=== PATIENT | male | born 1955 | race Caucasian/White ===

== ENCOUNTER 2017-05-20 14:16 | Outpatient (CLI) | payer OTHER ==
--- NOTE | 2017-05-20 17:33 | RAD ---
CHEST PA AND LATERAL TWO VIEWS: 05/20/17 HISTORY: 61-year-old male with history of viral infection and cough for five days with fever. B34.9. Heart size is within normal limits. The lungs are clear. No pneumonia, edema, or pleural effusion. IMPRESSION: No acute intrathoracic disease. POS: [facility]
== END 2017-05-20 14:17 | disposition home or self-care (01) ==
LOC: SCSRAD 14:16
PROVIDERS: ATTEND Family Medicine
DX: B34.9 Viral infection, unspecified (principal)
CPT/HCPCS: 71020

== ENCOUNTER 2017-10-23 12:50 | Inpatient (IN) | payer BC ==
[2017-10-23 14:00] LABS: #Basophils 0.1 thou/uL (0.0-0.2); #Eosinphils 0.1 thou/uL (0.0-0.7); #Lymphocytes 1.9 thou/uL (1.20-3.40); #Monocytes 0.5 thou/uL (0.11-0.59); #Neutrophils 10.8 thou/uL (1.40-6.50); %Basophils 0.7 % (0.0-1.0); %Eosinophils 0.8 % (0.0-10.0); %Lymphocytes 14.4 % (21.0-51.0); %Monocytes 3.7 % (0.0-10.0); %Neutrophils 80.4 % (42.0-75.0); Hemoglobin 13.3 g/dL (14.0-18.0); Mean Corpuscular Hemoglobin 26.8 pg (27.0-31.0); Mean Corpuscular Volume 81.3 fl (80.0-94.0); Mean Platelet Volume 7.4 fL (7.4-10.4); Platelet Count 282 thou/uL (130-400); RBC Distribution Width 11.9 % (11.5-14.5); Red Blood Cell (RBC) Count 4.95 mill/uL (4.70-6.10); White Blood Cell (WBC) Count 13.4 thou/uL (4.8-10.8)
[2017-10-23 14:09] LABS: ALT (SGPT) 71 U/L (8-55); AST (SGOT) 27 U/L (5-34); Albumin 4.2 g/dL (3.4-4.8); Alkaline Phosphatase 97 U/L (40-150); Anion Gap 13 mmol/L (10-20); BUN (Urea Nitrogen) 13 mg/dL (8.4-25.7); Bilirubin, Total 0.8 mg/dL (0.2-1.2); Calc. Creatinine Clearance 0 mL/min (70-130); Calcium 10.2 mg/dL (7.8-10.44); Carbon Dioxide 22 mmol/L (23-31); Chloride 100 mmol/L (98-107); Estimated GFR-MDRD 81; Globulin 2.6 g/dL (2.4-3.5); Glucose 291 mg/dL (80-115); Potassium 4.8 mmol/L (3.5-5.1); Protein, Total 6.8 g/dL (5.8-8.1); Sodium 130 mmol/L (136-145)
[2017-10-23 14:13] LABS: CKMB 4.3 ng/mL (0-6.6); Troponin I Less than 0.010 ng/mL (< 0.028)
[2017-10-23] MEDS ORDERED: Nitroglycerin 2% Ointment 1 INCH/1 GM Packet ONE (15:04)
--- NOTE | 2017-10-23 15:16 | RAD ---
UPRIGHT PORTABLE CHEST 1 VIEW: Date: 10/23/17 HISTORY: 62-year-old male with history of chest pain. COMPARISON: 05/20/17. FINDINGS: Heart size is normal. The lungs are clear. No pneumonia, edema, or pleural effusion. IMPRESSION: No acute intrathoracic disease. Stable from prior study. POS: [facility]
[2017-10-23] MEDS ORDERED: Morphine 5 MG/ML SYRINGE ONE (15:20)
--- NOTE | 2017-10-23 15:22 | CT ---
CT ANGIOGRAM CHEST CT ANGIOGRAM ABDOMEN 3D RENDING: Date: 10/23/17 HISTORY: 62-year-old male with history of severe back pain radiating to chest. FINDINGS: There is no significant CT evidence for acute pulmonary embolism. No evidence of aortic aneurysm or d issection. Fatty changes in the liver. Multiple gallstones within the gallbladder without gallbladder wall thickening or pericholecystic fat stranding. Abdominal aorta shows no evidence of aortic aneury sm or dissection. Only occasional calcified plaques. Evidence for bilateral pars defects at L5 with s ome generalized canal stenosis. Small hypodensity in the left kidney, statistically a small cyst. IMPRESSION: No evidence for thoracic or abdominal aortic aneurysm or dissection. Fatty changes in the liver. Mult iple gallstones. Probable small left renal cyst. Probable pars defects at L5 with some canal stenosis . POS: [facility]
[2017-10-23] MEDS ORDERED: Acetaminophen 325 MG TAB PO PRN (17:53)
[2017-10-23] MEDS ORDERED: Milk Of Magnesia 30 ML UDCUP PO PRN ×2 (17:53→21:46)
[2017-10-23] MEDS ORDERED: Nitroglycerin 0.4 MG TAB (25 Tab Bottle) PO PRN (17:54)
[2017-10-23] MEDS ORDERED: Iopamidol 370 76% 100 ML VIAL ONE (18:36)
[2017-10-23 18:49] LABS: Troponin I 0.025 ng/mL (< 0.028)
[2017-10-23] MEDS ORDERED: Lidocaine 2% Viscous Solution 10 ML, Aluminum & Magnesium Hydroxide 30 ML SSW SCH (20:30)
[2017-10-23] MEDS ORDERED: Docusate 100 MG CAP PO SCH (21:00)
[2017-10-23] MEDS ORDERED: Heparin 5,000 UNITS/ML VIAL SC SCH (21:00)
[2017-10-23 21:11] LABS: Troponin I Less than 0.010 ng/mL (< 0.028)
[2017-10-23] MEDS ORDERED: Dextrose 5% in Water 1,000 ML IV PRN (21:46)
[2017-10-23] MEDS ORDERED: Acetaminophen 500 MG TAB PO PRN (21:46)
[2017-10-23] MEDS ORDERED: cloNIDine 0.1 MG TAB PO PRN (21:46)
[2017-10-23] MEDS ORDERED: HumaLOG 300 UNITS/3 ML VIAL SC PRN (21:46)
[2017-10-23] MEDS ORDERED: Dextrose 50% Abboject 50 ML SYRINGE SLOW IVP PRN (21:46)
[2017-10-23] MEDS ORDERED: Ondansetron HCl/PF 4 MG/2 ML Vial IVP PRN (21:46)
[2017-10-23] MEDS ORDERED: hydrALAZINE 20 MG/ML VIAL SLOW IVP PRN (21:46)
--- NOTE | 2017-10-24 04:57 | HP ---
DATE OF ADMISSION: 10/23/2017 PRIMARY CARE PROVIDER: Dr. Austin Swann. CHIEF COMPLAINT: Chest pain. HISTORY OF PRESENT ILLNESS: This is a 62-year-old male who presents with less than 1-day h istory of chest pain, which began in the evening hours on 10/22/2017. The patient had returned from an event where he had eaten vegetables, but no heavy fatty meats or fatty foods when he noticed incre asing pain in the central portion of his chest, radiating to his back. The patient tried to alleviat e the symptoms with [id number] Aleve and changing positions, which was unsuccessful. The patie nt states the symptoms persisted and he became concerned, seeking medical attention in the emergency room. The patient denied any recent trauma, injury, change to medication regimen, strong family hist ory of early coronary artery disease or gastroesophageal reflux. The patient denies taking chronic a spirin therapy, but does state a 12-year history of diabetes mellitus, on oral hypoglycemics. The pa tient states he underwent stress testing approximately 8-9 years prior to this evaluation with negati ve findings. The patient states he is fairly sedentary with minimal activity and does not have a reg ular exercise routine. The patient states he is functional of activities of daily living, but no aer obic exercise. The patient denied any family members with similar symptoms, fever, cough, congestion or lower extremity swelling. In the emergency room, the patient underwent general evaluation treate d with morphine sulfate x2 doses as well as aspirin 324 mg and transdermal nitroglycerin. The patien t was also treated with a GI cocktail with improvement in overall symptomatology. The patient's init ial workup was unrevealing except for gallstones noted on CT of the chest and abdomen with dissection protocol. The patient was referred to the observation unit for further evaluation. PAST MEDICAL HISTORY: 1. Diabetes mellitus, type 2, on oral hypoglycemics x12 years. 2. Hypertension. 3. Fatty liver. 4. Hyperlipidemia. 5. Obesity. 6. Obstructive sleep apnea with nocturnal CPAP. 7. Bipolar disorder. 8. Depression. PAST SURGICAL HISTORY: 1. Status post appendectomy. 2. Status post right wrist surgery. 3. Status post arthroscopy of the knee. CURRENT MEDICATIONS: 1. Aripiprazole 5 mg p.o. daily. 2. Bupropion XL 150 mg p.o. daily. 3. Clonazepam 0.5 mg p.o. b.i.d. 4. Amaryl 4 mg p.o. daily. 5. Glargine insulin 6 units subcutaneously b.i.d. 6. Lisinopril 40 mg p.o. daily. 7. Glucophage XR 1000 mg p.o. b.i.d. 8. Naproxen 500 mg p.o. daily. 9. Trazodone 100 mg p.o. at bedtime. ALLERGIES: OSELTAMIVIR, SULFA. FAMILY HISTORY: Mother of complications of cancer, unknown type. Maternal grandmother with his tory of cardiomyopathy. No early coronary artery disease per patient report. SOCIAL HISTORY: The patient is , residing in [place], [place]. Unemployed. Functional of all activities of daily living. No current tobacco or illicit drug use. Social alcohol use. REVIEW OF SYSTEMS: The following complete review of systems was negative, unless otherwise mentioned in the HPI or below: Constitutional: Weight loss or gain, ability to conduct usual activities. Sk in: Rash, itching. Eyes: Double vision, pain. ENT/Mouth: Nose bleeding, neck stiffness, pain, te nderness. Cardiovascular: Palpitations, dyspnea on exertion, orthopnea. Respiratory: Shortness of breath, wheezing, cough, hemoptysis, fever or night sweats. Gastrointestinal: Poor appetite, abdom inal pain, heartburn, nausea, vomiting, constipation, or diarrhea. Genitourinary: Urgency, frequenc y, dysuria, nocturia. Musculoskeletal: Pain, swelling. Neurologic/Psychiatric: Anxiety, depressio n. Allergy/Immunologic: Skin rash, bleeding tendency. Otherwise negative except as stated per HPI. PHYSICAL EXAMINATION: VITAL SIGNS: On admission, blood pressure 113/56, pulse 74, respiratory rate 20, temperature 98.3 de grees Fahrenheit, O2 saturation 95% on room air. GENERAL APPEARANCE: This is a 62-year-old male, alert and oriented x3, pleasant, conversan t, in no acute distress. HEENT: Pupils are equal, round, and reactive to light and accommodation. Extraocular muscles are in tact. No scleral icterus, no conjunctival injection. Nares patent. OP is clear. Teeth in good rep air. NECK: Supple, no cervical adenopathy, no thyromegaly, no carotid bruits, no JVD appreciated. Cervic al spine with full active and passive range of motion. No meningeal signs appreciated. CHEST: Lungs are clear to auscultation bilaterally. CARDIOVASCULAR: S1, S2 without noted murmur, rub or gallop. ABDOMEN: Obese, soft, nontender, nondistended. Landmarks are difficult to palpate due to patient's body habitus. No rebound or guarding noted. EXTREMITIES: Warm and dry with good turgor. No clubbing, cyanosis or asymmetric edema appreciated. Pulses palpable distally at the dorsalis pedis, posterior tibial, and popliteal arteries bilaterally . Capillary refill less than 2 seconds. NEUROLOGIC: Cranial nerves II-XII are grossly intact. No focal or lateralizing signs appreciated. PERTINENT LABORATORY AND X-RAY FINDINGS: Sodium 130, potassium 4.8, chloride 100, CO2 of 22, BUN 13, creatinine 0.95, estimated GFR 81, glucose 291, calcium 10.2, AST 27, ALT 71, total bilirubin 0.8, a lkaline phosphatase 97. Troponin I negative x3. Albumin 4.2. CBC showed a white blood cell count o f 13.4, hemoglobin 13, hematocrit 40, platelet count 282 with 80% neutrophilia. Portable chest x-ray dated 10/23/2017 showed no acute cardiopulmonary process. CT of the chest with dissection protocol showed no acute evidence for abdominal aortic aneurysm or dissection. Fatty changes of the liver. M ultiple gallstones noted. EKG dated 10/23/2017 by my interpretation shows a sinus mechanism with hea rt rates in the 80s. Attenuated R waves noted in the precordial leads. Left axis deviation noted. No acute ST-T wave changes appreciated. ASSESSMENT AND PLAN: 1. Chest pain. The patient will be observed on the telemetry unit. We will proceed with Cardiolite stress testing in the a.m. Continue aspirin 81 mg daily. Check fasting lipid profile. Questionabl e component of gallstones to presentation. 2. Cholelithiasis. Questionable symptomatic cholelithiasis. We will continue to monitor clinical c ourse. Continue rule out for acute coronary syndrome as outlined in #1. The patient may need additi onal workup as an outpatient. Repeat LFTs in the a.m. 3. Diabetes mellitus, type 2, insulin requiring. Hold oral hypoglycemics and insulin due to n.p.o. status. Insulin sliding scale for reflexive coverage. Accu-Cheks before meals and at bedtime. 4. Hyponatremia. Suspect secondarily to hyperglycemia. Repeat sodium level in the a.m. 5. Neutrophilic leukocytosis. Questionable demargination effect. No current evidence to suggest fo nereida infectious process. Repeat CBC in the a.m. 6. Hypertension. Continue lisinopril 40 mg p.o. daily. Serial blood pressure monitoring. 7. Prophylaxis. Sequential compression devices while in bed. Pepcid 20 mg p.o. b.i.d. 8. Code status is FULL. Surrogate medical decision maker is patient's spouse.
[2017-10-24 05:29] LABS: ALT (SGPT) 74 U/L (8-55); AST (SGOT) 39 U/L (5-34); Alkaline Phosphatase 83 U/L (40-150); Anion Gap 10 mmol/L (10-20); BUN (Urea Nitrogen) 14 mg/dL (8.4-25.7); Bilirubin, Total 0.8 mg/dL (0.2-1.2); Calc. Creatinine Clearance 134 mL/min (70-130); Calcium 9.5 mg/dL (7.8-10.44); Carbon Dioxide 26 mmol/L (23-31); Cardiac Risk 5.5 (Less than 4.5); Chloride 100 mmol/L (98-107); Cholesterol 170 mg/dl (< 200 Desired); Estimated GFR-MDRD 70; Globulin 2.4 g/dL (2.4-3.5); Glucose 225 mg/dL (80-115); HDL Cholesterol 31 mg/dL (>60 Neg Risk); LDL Cholesterol, Calculated 114 mg/dL; Potassium 4.7 mmol/L (3.5-5.1); Protein, Total 6.4 g/dL (5.8-8.1); Sodium 131 mmol/L (136-145); Triglycerides 123 mg/dL (Less than 150)
[2017-10-24 05:36] LABS: Band 1 % (5-11); Eosinophils 1 % (0-10); Hemoglobin 12.3 g/dL (14.0-18.0); Lymphocytes 24 % (21-51); MDiff Complete? YES; Mean Corpuscular HGB CONC 31.9 g/dL (32.0-36.0); Mean Corpuscular Hemoglobin 26.7 pg (27.0-31.0); Mean Corpuscular Volume 83.6 fl (80.0-94.0); Monocytes 3 % (0-10); Neutrophil 70 % (42-75); PLT Morphology Comment Appears Adequate; Platelet Count 282 thou/uL (130-400); RBC Distribution Width 12.5 % (11.5-14.5); Red Blood Cell (RBC) Count 4.59 mill/uL (4.70-6.10); White Blood Cell (WBC) Count 11.2 thou/uL (4.8-10.8)
[2017-10-24] MEDS ORDERED: ADENOSINE 60 MG/20 ML VIAL ONE (07:25)
[2017-10-24] MEDS: Aspirin 81 mg Enteric Coated Tablet PO SCH (08:12)
[2017-10-24] MEDS: clonazePAM 0.5 MG TAB PO SCH ×2 (08:12→20:07)
[2017-10-24] MEDS: Lisinopril 20 MG TAB PO SCH (08:12)
[2017-10-24] MEDS: Famotidine 20 MG TAB PO SCH ×2 (08:12→20:07)
[2017-10-24] MEDS: Aripiprazole 10 MG TAB PO SCH (08:12)
[2017-10-24] MEDS: Bupropion 150 MG XL TAB PO SCH (08:12)
--- NOTE | 2017-10-24 12:49 | PDOC.PN ---
- Subjective Encounter Start Date: 10/24/17 Encounter Start Time: 12:00 Subjective: no chest pain or palp or sob -: had retrosternal pain radiating to back -: ate roasted beef prior to onset of pain - Objective Resuscitation Status: Resuscitation Status FULL:Full Resuscitation MAR Reviewed: Yes Vital Signs & Weight: Vital Signs (12 hours) Temp Pulse Resp BP Pulse Ox 10/24/17 12:22 98.9 F 79 20 158/70 H 95 10/24/17 07:52 99.1 F 74 20 10/24/17 07:08 99.1 F 74 20 184/74 H 96 10/24/17 04:04 98.2 F 68 20 133/59 L 97 Weight Weight 291 lb 9.6 oz I&O: 10/23/17 10/24/17 10/25/17 06:59 06:59 06:59 Intake Total 290 Balance 290 Result Diagrams: 10/24/17 04:03 10/24/17 04:03 Additional Labs: Accuchecks 10/24/17 10/24/17 10/23/17 12:24 04:04 21:54 POC Glucose 325 H 217 H 218 H Phys Exam - Physical Examination HEENT: PERRLA, moist MMs Neck: no JVD, supple Respiratory: no wheezing, no rales Cardiovascular: RRR, no significant murmur Gastrointestinal: soft, no distention, positive bowel sounds mild tenderness in epigastric area, no rebound or guarding, no cva tenderne Musculoskeletal: no edema, pulses present Neurological: non-focal, moves all 4 limbs Psychiatric: normal affect, A&O x 3 Dx/Plan (1) Atypical chest pain Code(s): R07.89 - OTHER CHEST PAIN Status: Acute (2) Cholelithiasis Code(s): K80.20 - CALCULUS OF GALLBLADDER W/O CHOLECYSTITIS W/O OBSTRUCTION Status: Acute Qualifiers: Cholelithiasis location: gallbladder (3) Obesity Code(s): E66.9 - OBESITY, UNSPECIFIED Status: Chronic Qualifiers: Obesity classification: adult class 3 (BMI >= 40) Body mass index: BMI 40.0 -44.9 (4) HTN (hypertension) Code(s): I10 - ESSENTIAL (PRIMARY) HYPERTENSION Status: Chronic Qualifiers: Hypertension type: essential hypertension Qualified Code(s): I10 - Essential (primary) hypertension (5) DM type 2 (diabetes mellitus, type 2) Status: Chronic Qualifiers: Diabetes mellitus snf insulin use: without terminal superintendent use Diabetes mellitus complication status: with unspecified complications Qualified Code(s) : E11.8 - Type 2 diabetes mellitus with unspecified complications (6) Dyslipidemia Code(s): E78.5 - HYPERLIPIDEMIA, UNSPECIFIED Status: Chronic (7) MARYCHUY (obstructive sleep apnea) Code(s): G47.33 - OBSTRUCTIVE SLEEP APNEA (ADULT) (PEDIATRIC) Status: Chronic (8) Bipolar disorder Code(s): F31.9 - BIPOLAR DISORDER, UNSPECIFIED Status: Chronic Qualifiers: Active/Remission status: in remission of unspecified degree Qualified Code( s): F31.70 - Bipolar disorder, currently in remission, most recent episode unspecified - Plan await stress test results -: usg of ru, d/w -: if stress is -ve dc plan per gen surg advice -: d/w patient and at bedside -: wbc was 14, temp of 99, mild lft abn likely pain related to galbladder * . Review of Systems - Medications/Allergies Allergies/Adverse Reactions: Allergies Allergy/AdvReac Type Severity Reaction Status Date / Time oseltamivir [From Tamiflu] Allergy Anxiety Verified 10/23/17 17:58 Sulfa (Sulfonamide Allergy Verified 10/23/17 17:58 Antibiotics) Medications: Current Medications Acetaminophen (Tylenol) 1,000 mg PO Q6H PRN PRN Reason: Headache/Fever or Mild Pain Aripiprazole (Abilify) 5 mg PO DAILY [facility] Last Admin: 10/24/17 08:12 Dose: 5 mg Aspirin (Ecotrin) 81 mg PO DAILY [facility] Last Admin: 10/24/17 08:12 Dose: 81 mg Bupropion HCl (Wellbutrin Xl) 150 mg PO DAILY [facility] Last Admin: 10/24/17 08:12 Dose: 150 mg Clonazepam (Klonopin) 0.5 mg PO BID [facility] Last Admin: 10/24/17 08:12 Dose: Not Given Clonidine (Catapres) 0.1 mg PO Q4H PRN PRN Reason: Systolic BP > 180 Dextrose/Water (Dextrose 50%) 25 gm SLOW IVP PRN PRN PRN Reason: Hypoglycemia Famotidine (Pepcid) 20 mg PO BID [facility] Last Admin: 10/24/17 08:12 Dose: 20 mg Glucagon (Glucagon) 1 mg IM PRN PRN PRN Reason: Hypoglycemia Hydralazine HCl (Apresoline) 10 mg SLOW IVP Q4H PRN PRN Reason: Systolic BP > 180 Dextrose/Water (D5w) 1,000 mls @ 0 mls/hr IV .Q0M PRN; As Directed PRN Reason: Hypoglycemia Insulin Human Lispro (Humalog) 0 units SC .MILD SLIDING SCALE PRN PRN Reason: Mild Correctional Scale Insulin Human Lispro (Humalog) 0 units SC .BEDTIME SLIDING SC PRN PRN Reason: Bedtime Correctional Scale Lisinopril (Zestril) 40 mg PO DAILY [facility] Last Admin: 10/24/17 08:12 Dose: 40 mg Magnesium Hydroxide (Milk Of Magnesium) 30 ml PO DAILYPRN PRN PRN Reason: Constipation Ondansetron HCl (Zofran Odt) 4 mg PO Q6H PRN PRN Reason: Nausea/Vomiting Ondansetron HCl (Zofran) 4 mg IVP Q6H PRN PRN Reason: Nausea/Vomiting Trazodone HCl (Desyrel) 100 mg PO [facility]
[2017-10-24 13:53] VITALS: BMI 44.3
--- NOTE | 2017-10-24 14:37 | NM ---
MYOCARDIAL PERFUSION SCAN: The patient was given 9.6 mCi of Technetium sestamibi for resting imaging and 27 mCi for stress imagi ng. The patient was stressed according to adenosine protocol. The patient obtained 60% of maximal age-pr edicted heart rate. INDICATION: Chest pain. FINDINGS: The left ventricle was imaged with SPECT imaging. CT attenuation imaging obtained. Normal and symmetric activity is seen throughout the left ventricle on stress and rest images. No ev idence of reversible ischemia. The wall motion appears normal. Ejection fraction is recorded at 62%. IMPRESSION: No evidence of reversible ischemia identified. POS: [facility]
--- NOTE | 2017-10-24 15:42 | CON ---
DATE OF CONSULTATION: 10/24/2017 REQUESTING PHYSICIAN: Dr. Farfan. HISTORY OF PRESENT ILLNESS: This is a 62-year-old morbidly obese man who presented yesterd ay with acute onset epigastric abdominal pain which started night before last. Pain was described as sharp, rated at 9/10, radiating to his back. Pain was associated with multiple episodes of nausea. Remotely, patient reports feeling malaise, multiple episodes of diarrhea, progressive abdominal bloa ting and increased flatulence over the last 7-10 days. He denies any fevers or chills. His appetite has been poor. His dinner two nights ago consisted of roast beef and lunch prior to that consisted of fried chicken strips. Patient denies any syncope or dyspnea. He was admitted here to rule out ac ann coronary syndrome. Stress test was performed today which was essentially unremarkable. CT angio graphy of the chest was obtained as part of this patient's initial workup, this was negative for thor acic or abdominal aortic aneurysm or dissection. There was an incidental notation of multiple intral uminal gallstones nevertheless. At the time of my evaluation, the patient is awake and alert. He reports a decrease in his abdominal pain; however, he is still feeling some malaise, fatigue and abdominal bloating. PAST MEDICAL HISTORY: Significant for morbid obesity, type 2 diabetes mellitus, essential hypertensi on, hyperlipidemia, obstructive sleep apnea, bipolar disorder and chronic depression. PAST SURGICAL HISTORY: Pertinent for appendectomy, knee arthroscopy and right wrist surgery. SOCIAL HISTORY: Patient is and lives at home in [place] with his . He is currently une mployed. Denies any cigarette smoking, ethanol or illicit drug abuse. FAMILY HISTORY: Noncontributory for this patient's age. MEDICATIONS: I have reviewed his prehospital medication which includes, bupropion XL, clonazepam, Am aryl, lisinopril, Glucophage, trazodone, naproxen, and Glargine insulin. ALLERGIES: SULFA DRUGS. REVIEW OF SYSTEMS: A 10-point review of systems is essentially unremarkable except for as stated in past medical history and chief complaint. PHYSICAL EXAMINATION: GENERAL: This reveals a 62-year-old morbidly obese man who is otherwise coherent and interactive and appears stated age. The patient is alert and oriented x3, appears to be in no significant acute dis tress at the time of my evaluation. VITAL SIGNS: Today includes blood pressure 158/70, pulse 79, respiratory rate is 20, temperature is 98.9 degrees Fahrenheit, oxygen saturation 95% on room air. HEENT: Reveals normocephalic and atraumatic. Pupils are equal, round, reactive to light and accommo dation. He has no sclerae icterus present. HEART: Reveals regular rate and rhythm, no murmurs or gallops auscultated. LUNGS: Clear to auscultation bilaterally. Breathing regular and unlabored. ABDOMEN: Soft and obese with moderate right upper quadrant tenderness to palpation. Liver and splee n are otherwise nonpalpable below costal margin. EXTREMITIES: Reveal 2+ radial and pedal pulses bilaterally. No ankle edema is present. NEUROLOGIC: Reveals no focal deficits present. PERTINENT LABORATORY DATA: Today includes a CBC today with 11,200 white blood cells, this is in cont rast to 13,400 white blood cells yesterday. Hemoglobin and hematocrit are stable at 12.3 and 38.4 re spectively. Platelet count is also stable at 282,000. Metabolic profile: Sodium 131, potassium is 4.7, chloride is 100, bicarbonate 26, BUN is 14, creatinine is 1.08, glucose is 225. Total bilirubin 0.8, AST and ALT today at 39 and 74 respectively. Alkaline phosphatase is normal at 83. I did review the CT angiography of the chest, specifically which reveals multiple intraluminal gallst ones. At the time of my dictation, liver ultrasound is pending as the patient has just had lunch aislinn or to my arrival. The ultrasound will be performed in 4-5 hours from now. IMPRESSION: 1. Acute cholecystitis with cholelithiasis. 2. Morbid obesity. 3. History of essential hypertension. 4. History of type 2 diabetes mellitus. PLAN: Laparoscopic cholecystectomy with intraoperative cholangiogram. If the liver ultrasound sugge sts acute gallbladder inflammation, otherwise we will consider obtaining a HIDA scan. The recommendation has been discussed with the patient and his at bedside. I have advised them of the risk and benefits of the proposed surgery should that be undertaken. The surgical risks inclu de, but not limited to bleeding, infection, injury to bile duct or surrounding structures. The patie nt and his have indicated understanding of information provided. I answered all the questions. Thank you again, Dr. Farfan for allowing me the opportunity to participate in the care of this p atient.
--- NOTE | 2017-10-24 19:11 | ULT ---
GALLBLADDER ULTRASOUND: HISTORY: Right upper quadrant pain. Evaluate for cholecystitis. COMPARISON: None. CORRELATION: CT abdomen and pelvis from 10/23/2017. TECHNIQUE: Utilizing a Multi-Hertz transducer, sonographic imaging of the right upper quadrant was performed in the longitudinal and transverse plane. FINDINGS: Suboptimal evaluation of the pancreas due to bowel gas. Increased echogenicity to the liver due to hepatic steatosis. Limited evaluation for hepatic masses and intrahepatic biliary dilatation. Recent CT does not demonstrate any hepatic masses. The common bile duct is poorly defined. Within the lumen of the gallbladder, there are echogenic foci, compatible with gallstones. Evaluatio n of the gallbladder fossa is limited. No obvious pericholecystic fluid. The gallbladder wall is no t thickened. Reported negative Powers sign. The right kidney has a normal echotexture. No hydronephrosis. The right kidney measures 12 cm in ma ximum dimension. IMPRESSION: Limited evaluation due to bowel gas and body habitus. Sonographic evidence of cholelithiasis without definite sonographic evidence of cholecystitis. Correlation made with recent CT does not demonstrat e any acute inflammation of the gallbladder. POS: [facility]
[2017-10-24] MEDS ORDERED: Lidocaine 2% Viscous Solution 10 ML, Aluminum & Magnesium Hydroxide 30 ML SSW SCH (19:15)
[2017-10-24] MEDS ORDERED: Morphine 4 MG/ML VIAL IV PRN (19:15)
[2017-10-24] MEDS: traZODone HCl 50 MG TAB PO SCH (20:06)
[2017-10-25] MEDS: Ondansetron ODT 4 MG TAB PO PRN ×3 (03:03→16:24)
[2017-10-25] MEDS: Aripiprazole 10 MG TAB PO SCH (09:18)
[2017-10-25] MEDS: HumaLOG 300 UNITS/3 ML VIAL SC PRN ×3 (09:18→17:53)
[2017-10-25] MEDS: clonazePAM 0.5 MG TAB PO SCH ×2 (09:18→20:53)
[2017-10-25] MEDS: Aspirin 81 mg Enteric Coated Tablet PO SCH (09:18)
[2017-10-25] MEDS: Lisinopril 20 MG TAB PO SCH (09:19)
[2017-10-25] MEDS: Bupropion 150 MG XL TAB PO SCH (09:19)
[2017-10-25] MEDS: Famotidine 20 MG TAB PO SCH ×2 (09:19→20:53)
--- NOTE | 2017-10-25 10:45 | PRG ---
DATE OF SERVICE: 10/25/2017 SUBJECTIVE: Mr. Bautista is a 62-year-old morbidly obese man who was admitted with several days of rachael ise, abdominal bloating, epigastric abdominal pain as well as diarrhea. Initial workup revealed gall stones. The patient had a negative nuclear medicine stress test. Gallbladder ultrasound yesterday r evealed multiple intraluminal gallstones. There was no gallbladder wall thickening or pericholecysti c fluid noted. This morning, the patient reports persistent nausea, malaise, abdominal bloating and diarrhea. He denies any fevers or chills. PHYSICAL EXAMINATION: VITAL SIGNS: Currently includes blood pressure 167/70, pulse 68, respiratory rate 20, maximum temper ature in the last 24 hours is 98.4 degrees Fahrenheit, oxygen saturation 96% on room air. HEENT: Reveals normocephalic and atraumatic. Pupils are equal, round, and reactive to light and acc ommodation. Extraocular muscles are intact bilaterally. He has no sclerae icterus present. Oral mu cosa is pink and moist. No lesions are noted. NECK: Supple. No palpable lymphadenopathy or thyromegaly present. HEART: Reveals regular rate and rhythm, no murmurs or gallops auscultated. LUNGS: Clear to auscultation bilaterally. Breathing regular and unlabored. ABDOMEN: Soft and obese with epigastric tenderness to palpation. Liver and spleen remain nonpalpabl e below costal margin. IMPRESSION: 1. Intractable nausea, abdominal bloating and diarrhea. 2. Cholelithiasis, no radiographic evidence of acute cholecystitis. PLAN: I still suspect the gallbladder as the etiology of this patient's symptomatology, especially g iven abnormal AST and ALT yesterday. We will recommend obtaining HIDA scan, which is possible tomorr ow morning given the patient had nuclear medicine stress test yesterday. Should a HIDA scan be perfo rmed and is conclusive for chronic cholecystitis in the face of cholelithiasis, I would recommend a l aparoscopic cholecystectomy with intraoperative cholangiogram at that time. Above findings and plan discussed with the patient who indicates understanding of the information giv en. I have answered his questions.
--- NOTE | 2017-10-25 12:45 | PDOC.PN ---
- Subjective Encounter Start Date: 10/25/17 Encounter Start Time: 08:45 Subjective: c/o back pain -: no chest pain or palp or sob - Objective Resuscitation Status: Resuscitation Status FULL:Full Resuscitation MAR Reviewed: Yes Vital Signs & Weight: Vital Signs (12 hours) Temp Pulse Resp BP Pulse Ox 10/25/17 11:19 99.3 F 83 20 131/60 94 L 10/25/17 07:54 98.3 F 68 20 10/25/17 07:17 98.3 F 68 20 164/70 H 96 10/25/17 03:03 98.4 F 75 16 138/65 96 Weight Admit Weight 289 lb 11.2 oz Weight 285 lb 12.8 oz I&O: 10/24/17 10/25/17 10/26/17 06:59 06:59 06:59 Intake Total 290 840 Output Total 1100 Balance 290 -260 Result Diagrams: 10/24/17 04:03 10/24/17 04:03 Additional Labs: Accuchecks 10/25/17 10/25/17 10/24/17 11:23 05:24 20:15 POC Glucose 392 H 274 H 279 H 10/24/17 17:11 POC Glucose 236 H Phys Exam - Physical Examination HEENT: PERRLA, moist MMs Neck: no JVD, supple Respiratory: no wheezing, no rales Cardiovascular: RRR, no significant murmur Gastrointestinal: soft, no distention, positive bowel sounds tenderness to palp in epigastric area Musculoskeletal: no edema, pulses present Neurological: non-focal, moves all 4 limbs Psychiatric: normal affect, A&O x 3 Dx/Plan (1) Atypical chest pain Code(s): R07.89 - OTHER CHEST PAIN Status: Acute (2) Cholelithiasis Code(s): K80.20 - CALCULUS OF GALLBLADDER W/O CHOLECYSTITIS W/O OBSTRUCTION Status: Acute Qualifiers: Cholelithiasis location: gallbladder (3) Obesity Code(s): E66.9 - OBESITY, UNSPECIFIED Status: Chronic Qualifiers: Obesity classification: adult class 3 (BMI >= 40) Body mass index: BMI 40.0 -44.9 (4) HTN (hypertension) Code(s): I10 - ESSENTIAL (PRIMARY) HYPERTENSION Status: Chronic Qualifiers: Hypertension type: essential hypertension Qualified Code(s): I10 - Essential (primary) hypertension (5) DM type 2 (diabetes mellitus, type 2) Status: Chronic Qualifiers: Diabetes mellitus nursing home insulin use: without nursing home use Diabetes mellitus complication status: with unspecified complications Qualified Code(s) : E11.8 - Type 2 diabetes mellitus with unspecified complications (6) Dyslipidemia Code(s): E78.5 - HYPERLIPIDEMIA, UNSPECIFIED Status: Chronic (7) MARYCHUY (obstructive sleep apnea) Code(s): G47.33 - OBSTRUCTIVE SLEEP APNEA (ADULT) (PEDIATRIC) Status: Chronic (8) Bipolar disorder Code(s): F31.9 - BIPOLAR DISORDER, UNSPECIFIED Status: Chronic Qualifiers: Active/Remission status: in remission of unspecified degree Qualified Code( s): F31.70 - Bipolar disorder, currently in remission, most recent episode unspecified - Plan HIDA scan in am to r/o cholecystitis -: will switch to inpatient status in view of ongoing pain and the need for HI -: -DA scan to confirm diagnosis. -: d/w patient and at bedside, d/w -: labs in am, has elevated alt, fever is resolving today * . Review of Systems - Medications/Allergies Allergies/Adverse Reactions: Allergies Allergy/AdvReac Type Severity Reaction Status Date / Time oseltamivir [From Tamiflu] Allergy Anxiety Verified 10/23/17 17:58 Sulfa (Sulfonamide Allergy Verified 10/23/17 17:58 Antibiotics) Medications: Current Medications Acetaminophen (Tylenol) 1,000 mg PO Q6H PRN PRN Reason: Headache/Fever or Mild Pain Aripiprazole (Abilify) 5 mg PO DAILY [facility] Last Admin: 10/25/17 09:18 Dose: 5 mg Aspirin (Ecotrin) 81 mg PO DAILY [facility] Last Admin: 10/25/17 09:18 Dose: 81 mg Bupropion HCl (Wellbutrin Xl) 150 mg PO DAILY [facility] Last Admin: 10/25/17 09:19 Dose: 150 mg Clonazepam (Klonopin) 0.5 mg PO BID [facility] Last Admin: 10/25/17 09:18 Dose: 0.5 mg Clonidine (Catapres) 0.1 mg PO Q4H PRN PRN Reason: Systolic BP > 180 Dextrose/Water (Dextrose 50%) 25 gm SLOW IVP PRN PRN PRN Reason: Hypoglycemia Famotidine (Pepcid) 20 mg PO BID [facility] Last Admin: 10/25/17 09:19 Dose: 20 mg Glucagon (Glucagon) 1 mg IM PRN PRN PRN Reason: Hypoglycemia Hydralazine HCl (Apresoline) 10 mg SLOW IVP Q4H PRN PRN Reason: Systolic BP > 180 Dextrose/Water (D5w) 1,000 mls @ 0 mls/hr IV .Q0M PRN; As Directed PRN Reason: Hypoglycemia Insulin Human Lispro (Humalog) 0 units SC .MILD SLIDING SCALE PRN PRN Reason: Mild Correctional Scale Last Admin: 10/25/17 12:26 Dose: 6 units Insulin Human Lispro (Humalog) 0 units SC .BEDTIME SLIDING SC PRN PRN Reason: Bedtime Correctional Scale Last Admin: 10/24/17 20:15 Dose: 3 unit Lisinopril (Zestril) 40 mg PO DAILY [facility] Last Admin: 10/25/17 09:19 Dose: 40 mg Magnesium Hydroxide (Milk Of Magnesium) 30 ml PO DAILYPRN PRN PRN Reason: Constipation Morphine Sulfate (Morphine) 2 mg IV Q4H PRN PRN Reason: Pain Ondansetron HCl (Zofran Odt) 4 mg PO Q6H PRN PRN Reason: Nausea/Vomiting Last Admin: 10/25/17 09:19 Dose: 4 mg Ondansetron HCl (Zofran) 4 mg IVP Q6H PRN PRN Reason: Nausea/Vomiting Sodium Chloride (Flush - Normal Saline) 10 ml IVF Q12HR [facility] Last Admin: 10/25/17 10:01 Dose: Not Given Sodium Chloride (Flush - Normal Saline) 10 ml IVF PRN PRN PRN Reason: Saline Flush Trazodone HCl (Desyrel) 100 mg PO HS [facility] Last Admin: 10/24/17 20:06 Dose: 100 mg
[2017-10-25] MEDS ORDERED: Loperamide HCl 2 MG CAP PO SCH (13:00)
[2017-10-25] MEDS ORDERED: Lidocaine 2% Viscous Solution 10 ML, Aluminum & Magnesium Hydroxide 30 ML SSW SCH (19:45)
[2017-10-25] MEDS: traZODone HCl 50 MG TAB PO SCH (20:53)
[2017-10-26 07:40] VITALS: BP 142/81; TEMP 98.2
[2017-10-26] MEDS: Aripiprazole 10 MG TAB PO SCH (08:00)
[2017-10-26] MEDS: Aspirin 81 mg Enteric Coated Tablet PO SCH (08:00)
[2017-10-26] MEDS: clonazePAM 0.5 MG TAB PO SCH (08:00)
[2017-10-26] MEDS: Famotidine 20 MG TAB PO SCH (08:00)
[2017-10-26] MEDS: Lisinopril 20 MG TAB PO SCH (08:00)
[2017-10-26] MEDS: Bupropion 150 MG XL TAB PO SCH (08:50)
[2017-10-26] MEDS ORDERED: Insulin Glargine 15 UNITS in Pre-Filled Syringe 1 EACH SC SCH (09:00)
--- NOTE | 2017-10-26 12:40 | PRG ---
DATE OF SERVICE: 10/26/2017 SUBJECTIVE: Mr. Bautista is a 62-year-old morbidly obese man with type 2 diabetes mellitus. The patien t continues to complain of abdominal bloating and multiple loose bowel movements. He denies any sign ificant nausea overnight. He has been on bowel rest; however. He has known gallstones with no radio graphic evidence of acute cholecystitis. HIDA scan today showed gallbladder which was timely visuali zed. There was no evidence of biliary obstruction. Ejection fraction is noted at 48%. I did discus s with the patient and his at bedside. I am not convinced that this patient's symptomatology is a result of significant biliary disease. I have recommended that the patient follows up with his [facility] care physician with regards to his oral hypoglycemics. The patient takes metformin, which can cause diarrhea. If his medications are adjusted and he continues to have this GI symptoms, I do rec ommend that the patient follows up with Gastroenterology for possible upper endoscopy and other hua p as indicated. There is no acute surgical indication for this patient at this time. Therefore, Gen [facility] will sign off and will be available to reevaluate the patient on demand. The above find ings and recommendations were discussed with the patient and his . They both indicated understan ding of information given and I do agree with the plan.
--- NOTE | 2017-10-26 13:04 | PDOC.PN ---
- Subjective Encounter Start Date: 10/26/17 Encounter Start Time: 07:50 Subjective: feels better -: no sob or palpitations - Objective MAR Reviewed: Yes Vital Signs & Weight: Vital Signs (12 hours) Temp Pulse Resp BP BP Pulse Ox 10/26/17 08:00 98.2 F 76 18 142/81 H 93 L 10/26/17 07:39 98.2 F 76 18 142/81 H 93 L Result Diagrams: 10/24/17 04:03 10/24/17 04:03 Additional Labs: Accuchecks 10/26/17 10/26/17 10/25/17 11:29 04:22 19:51 POC Glucose 282 H 302 H 332 H 10/25/17 17:00 POC Glucose 385 H Phys Exam - Physical Examination HEENT: PERRLA Neck: no JVD, supple Respiratory: no wheezing, no rales Cardiovascular: RRR, no significant murmur Gastrointestinal: soft, no distention, positive bowel sounds Musculoskeletal: no edema, pulses present Neurological: non-focal, moves all 4 limbs Psychiatric: normal affect, A&O x 3 Dx/Plan (1) Atypical chest pain Code(s): R07.89 - OTHER CHEST PAIN Status: Acute (2) Cholelithiasis Code(s): K80.20 - CALCULUS OF GALLBLADDER W/O CHOLECYSTITIS W/O OBSTRUCTION Status: Acute Qualifiers: Cholelithiasis location: gallbladder Cholecystitis presence: without cholecystitis Biliary obstruction: without biliary obstruction Qualified Code(s): K80.20 - Calculus of gallbladder without cholecystitis without obstruction (3) Obesity Code(s): E66.9 - OBESITY, UNSPECIFIED Status: Chronic Qualifiers: Obesity classification: adult class 3 (BMI >= 40) Body mass index: BMI 40.0 -44.9 (4) HTN (hypertension) Code(s): I10 - ESSENTIAL (PRIMARY) HYPERTENSION Status: Chronic Qualifiers: Hypertension type: essential hypertension Qualified Code(s): I10 - Essential (primary) hypertension (5) DM type 2 (diabetes mellitus, type 2) Status: Chronic Qualifiers: Diabetes mellitus [facility]iary insulin use: without intermission coordinator use Diabetes mellitus complication status: with unspecified complications Qualified Code(s) : E11.8 - Type 2 diabetes mellitus with unspecified complications (6) Dyslipidemia Code(s): E78.5 - HYPERLIPIDEMIA, UNSPECIFIED Status: Chronic (7) MARYCHUY (obstructive sleep apnea) Code(s): G47.33 - OBSTRUCTIVE SLEEP APNEA (ADULT) (PEDIATRIC) Status: Chronic (8) Bipolar disorder Code(s): F31.9 - BIPOLAR DISORDER, UNSPECIFIED Status: Chronic Qualifiers: Active/Remission status: in remission of unspecified degree Qualified Code( s): F31.70 - Bipolar disorder, currently in remission, most recent episode unspecified - Plan d/w PILAR [place] scan is -ve for cholecystitis -: dc pt home -: to f/u with pcp in 1 week. * .
--- NOTE | 2017-10-26 13:36 | NM ---
NUCLEAR MEDICINE HIDA SCAN: INDICATIONS: Cholecystitis. Cholelithiasis. Concern for biliary obstruction. RADIOTRACER: Technetium 99m mebrofenin 5 millicuries IV. MEDICATIONS: Cholecystokinin 2.6 mcg IV 30 minute infusion. FINDINGS: Homogeneous radiotracer uptake of the hepatic parenchyma is demonstrated. The gallbladder is visuali zed prior to 10 minutes of imaging. Subsequent bowel activity is also visualized. Gallbladder ejection fraction is evaluated status post cholecystokinin administration, which reveals a gallbladder ejection fraction of approximately 48%. IMPRESSION: 1. Visualization of the gallbladder excludes cystic duct obstruction. 2. Normal gallbladder ejection fraction makes biliary dyskinesia unlikely. POS: [facility]
--- NOTE | 2017-10-27 01:48 | DIS ---
DATE OF ADMISSION: 10/23/2017 DATE OF DISCHARGE: 10/26/2017 DISCHARGE DISPOSITION: To home. PRIMARY DISCHARGE DIAGNOSES: Atypical chest pain, cholelithiasis. SECONDARY DISCHARGE DIAGNOSES: Hypertension, diabetes mellitus type 2, dyslipidemia, obstructive sle ep apnea, bipolar disorder, obesity. PROCEDURES DONE DURING HOSPITALIZATION: Nuclear stress test done on the , showed no evidence of r eversible ischemia. Ejection fraction was 62% with normal wall motion. Abdominal ultrasound done on the floor, showed limited evaluation due to bowel gas and body habitus. There is cholelithiasis wit hout definite sonographic evidence of cholecystitis. CT dissection protocol done on the day of admis emilia showed no evidence of dissection. There are fatty changes in the liver, multiple gallstones wer e seen. HIDA scan done today showed visualization of the gallbladder excludes cystic duct obstructio n, normal gallbladder ejection fraction of approximately 48%, makes biliary dyskinesia unlikely. Had a white count of 13 on the day of admission with 80% neutrophils. AST 27, ALT 71, total bilirubin 0 .8, alkaline phosphatase 97. Three sets of troponin were negative. Total cholesterol 170, triglycer ides 123, LDL 114, HDL 31. INPATIENT CONSULT: Dr. Gillespie for General Surgery. DISCHARGE PLAN: Patient is to follow up with primary care physician in 1 week. DISCHARGE MEDICATIONS: Bupropion extended release 150 mg daily, aripiprazole 5 mg daily, clonazepam 0.5 mg twice daily, glimepiride 4 mg daily, Lantus 60 units subcu twice daily, lisinopril 40 mg daily , metformin extended release 1000 mg twice daily, Naprosyn p.r.n., trazodone 100 mg p.o. at bedtime. ALLERGIES: OSELTAMIVIR and SULFA. BRIEF COURSE DURING HOSPITALIZATION: Patient initially came to ER on the with complaints of retr osternal chest pain radiating to the back. In view of multiple risk factors, the patient was placed under observation on telemetry to rule out ACS. The patient had a CT dissection protocol done, which showed multiple gallstones and patient had a white count of 13 with a temperature of 99, entertainin g the possibility for acute cholecystitis. He has had ultrasound of the right upper quadrant done, w hich was inconclusive. Three sets of troponin were negative. Nuclear stress test showed no signs of reversible ischemia. He has had a General Surgery consultation with Dr. Gillespie as the patient had on going epigastric and retrosternal pain radiating to the back. As patient required washout from nucle ar stress test for HIDA scan, patient remained in house and was switched over the inpatient status fo r suspicion of acute cholecystitis with ongoing pain. HIDA scan was done this morning, which showed no signs of cystic duct obstruction or biliary dyskinesia. Dr. Gillespie evaluated him this morning and has cleared him for discharge. No surgery was done in view of all the workup that was done. He need s to follow up with his primary care physician in 1 week. Please see a [id number] documentation on [facility] for the day of discharge.
== END 2017-10-26 13:40 | disposition home or self-care (01) | DRG 445 ==
LOC: SCSER 12:50 → UNDOADMOB 15:10 → 2SW 15:10 → OBSVTOIN 15:18 → 2SW 15:18 → INTOOBSV 10-25 12:42 → OBSVTOIN 10-25 12:42 → T4-B 10-25 14:33 → 2SW 10-25 14:33 → UNDODISIN 10-26 13:40
PROVIDERS: ADMIT Internal Medicine Infectious Disease; ATTEND Internal Medicine Infectious Disease
DX: K80.00 Calculus of gallbladder with acute cholecystitis without obstruction (principal); E87.1 Hypo-osmolality and hyponatremia; Z68.41 Body mass index [BMI] 40.0-44.9, adult; E11.9 Type 2 diabetes mellitus without complications; Z79.4 Long term (current) use of insulin; D72.828 Other elevated white blood cell count; I10 Essential (primary) hypertension; K76.0 Fatty (change of) liver, not elsewhere classified; G47.33 Obstructive sleep apnea (adult) (pediatric); E78.5 Hyperlipidemia, unspecified; F31.9 Bipolar disorder, unspecified; Z79.84 Long term (current) use of oral hypoglycemic drugs; E66.01 Morbid (severe) obesity due to excess calories; Z88.2 Allergy status to sulfonamides; Z88.8 Allergy status to other drugs, medicaments and biological substances
CPT/HCPCS: 36415; 36416; 71045; 71275; 76705; 78227; 78452; 80053; 80061; 82553; 84484; 85007; 85025; 85027; 93005; 93017; 94760; 96374; 96376; J2270; A4216; A9500; A9537; J0153; J2405; Q0162

== ENCOUNTER 2018-06-29 09:35 | Outpatient (CLI) | payer BC ==
[~2018-06-29 09:35] MED LIST: Lidocaine 2% PF 100 mg/5 ml Syringe ONE; Sodium Chloride 0.9% 15 ML NEB ONE
--- NOTE | 2018-06-29 16:40 | HP ---
HISTORY OF PRESENT ILLNESS: Mr. Berny Bautista is a very pleasant 62-year-old gentleman, who presents to the [facility]ound [facility] for evaluation of an ulceration over the right lower quadrant. The patient states that the ulceration has been present for approximately 5 to 6 weeks and developed "from an abrasion from jeans at the belt line." The patient states that the wound is in the region of scar tissue from an appendectomy at 13 years of age. The patient states that he saw his primary care physician on 06/15/2018, and at this time, was referred to the Wound Center for further evaluation and treatment. The patient states that he has been treating his wound with coconut oil followed by a dry dressing. He states that he is taking 10 days of doxycycline as per Dr. Swann. PAST MEDICAL HISTORY: 1. Diabetes mellitus. 2. Hypertension. 3. Fatty liver. 4. Obstructive sleep apnea. PAST SURGICAL HISTORY: 1. Left total knee replacement. 2. Appendectomy at age 13. 3. Right wrist surgery. 4. Left knee arthroscopy. 5. Tonsillectomy, remote. MEDICATIONS: 1. Aripiprazole. 2. Lantus. 3. Amaryl. 4. Trazodone. 5. Metformin. 6. Clonazepam. 7. Lisinopril. 8. Bupropion. 9. Naproxen. 10. Doxycycline. ALLERGIES: SULFA OSELTAMIVIR. SOCIAL HISTORY: Social history is negative for tobacco use. The patient admits to the consumption of one drink per week for the past 40 years, specifically since age 19. FAMILY HISTORY: Family history is negative for diabetes mellitus. Family history is significant for coronary artery disease. The patient states that his mother was diagnosed with coronary artery disease. PHYSICAL EXAMINATION: VITAL SIGNS: Temperature 98.2, pulse 77, and blood pressure 149/69. Accu-Chek 123. GENERAL: A 62-year-old gentleman, sitting on chair in examination room, in no acute distress. HEENT: Normocephalic and atraumatic. NECK: No nuchal rigidity. CHEST: Clear to auscultation. CV: Regular rate and rhythm. ABDOMEN: Soft. An ulceration over the right lower quadrant is present, which measures approximately 2.9 x 2.3 cm. The ulceration is located over a surgical scar from remote appendectomy. Granulation tissue is visible within the wound margins. Necrotic and nonviable tissue present within the wound margins was debrided with an excisional full-thickness debridement with the use of a curette. No purulent drainage is associated with the wound. No erythema of the skin surrounding the wound is present. No maceration of the skin of the periwound is noted. EXTREMITIES: No clubbing or cyanosis. NEUROLOGIC: Grossly nonfocal. ASSESSMENT AND PLAN: 1. Ulceration over right lower quadrant as described above. Dressing changes of Mckenzie will be initiated today. These dressing changes are to be performed on a daily basis after cleansing and irrigation with the assistance of the patient's . The patient has been reminded to continue doxycycline as previously prescribed. I will see Mr. Bautista again in 2 weeks. 2. Diabetes mellitus. The patient's Accu-Chek in clinic today is 123. The patient has been told that for optimal wound healing, his blood glucoses should remain below 150. 3. Hypertension. 4. Fatty liver. 5. Obstructive sleep apnea. Job ID: [id number]
== END 2018-06-29 09:36 | disposition home or self-care (01) ==
LOC: WCC 09:35
PROVIDERS: ATTEND Family Medicine
DX: E11.622 Type 2 diabetes mellitus with other skin ulcer (principal); L98.499 Non-pressure chronic ulcer of skin of other sites with unspecified severity; K76.0 Fatty (change of) liver, not elsewhere classified; G47.33 Obstructive sleep apnea (adult) (pediatric); I10 Essential (primary) hypertension
CPT/HCPCS: 11042; 99203; A4218; G0463; J2001

== ENCOUNTER 2018-07-13 11:15 | Outpatient (CLI) | payer BC ==
--- NOTE | 2018-07-13 11:37 | PRG ---
DATE OF SERVICE: 07/13/2018 SUBJECTIVE: Mr. Berny Bautista is a very pleasant 62-year-old gentleman, who presents to the Wound Center for evaluation of an ulceration over the right lower quadrant. The patient stated that the ulceration had been present for approximately 5 to 6 weeks and developed "from an abrasion from Jeans at the belt line." The patient stated that the wound is in a region of scar tissue from an appendectomy at 13 years of age. The patient stated that he saw his primary care physician on 06/15/2018, and at this time, was referred to the Wound Center for further evaluation and treatment. The patient stated that he had been treating his wound with coconut oil followed by dry dressing prior to being seen in the Wound Center. He stated that he had been placed on doxycycline for [address] Swann, also prior to being seen in the Wound Center. OBJECTIVE: VITAL SIGNS: Temperature 98.1, pulse 79, respirations 21, blood pressure 159/74. Accu-Chek 152. ABDOMEN: Soft. An ulceration over the right lower quadrant is present, which measures approximately 2.5 x 1.8 cm. The dimensions of the wound at the time of the patient's last visit were approximately 2.9 x 2.3 cm. The ulceration is located over surgical scar from remote appendectomy. Granulation tissue is present within the wound margins. Necrotic and nonviable tissue present within the wound margins, was debrided with an excisional full-thickness debridement with the use of a curette. No purulent drainage is associated with the wound. No erythema of the skin surrounding the wound is present. No maceration of the skin of the periwound is noted. ASSESSMENT AND PLAN: 1. Ulceration of the right lower quadrant as described above. Dressing changes of [place] will be continued. These dressing changes are to be performed 3 times per week after cleansing and irrigation with the assistance of the patient's . Gauze and Mepilex border will be utilized as secondary dressings. I will see Mr. Bautista again in 2 weeks. 2. Diabetes mellitus. The patient's Accu-Chek in clinic today is 152. The patient has been reminded that for optimal wound healing, his blood glucoses should remain below 150. 3. Hypertension. 4. Fatty liver. 5. Obstructive sleep apnea. Job ID: [id number]
[2018-07-13] MEDS ORDERED: Sodium Chloride 0.9% 15 ML NEB ONE (18:00)
== END 2018-07-13 11:16 | disposition home or self-care (01) ==
LOC: WCC 11:15
PROVIDERS: ATTEND Family Medicine
DX: E11.622 Type 2 diabetes mellitus with other skin ulcer (principal); L98.499 Non-pressure chronic ulcer of skin of other sites with unspecified severity; I10 Essential (primary) hypertension; K76.0 Fatty (change of) liver, not elsewhere classified; G47.33 Obstructive sleep apnea (adult) (pediatric)
CPT/HCPCS: 36416; A4218

== ENCOUNTER 2019-12-10 12:34 | Observation (INO) | payer BC ==
--- NOTE | 2019-12-10 12:58 | CT ---
CT head noncontrast HISTORY: Altered mental status. Left arm numbness. FINDINGS: There is no evidence of acute intracranial hemorrhage or infarct. The ventricles appear nor mal in size, shape and position. 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 Diffuse cortical atrophy, most pronounced at each frontal lobe. There is no mass effect or shift of midline structures. Visualized paranasal sinuses remain well aera conrado. IMPRESSION : Chronic-type findings. No acute intracranial abnormalities are demonstrated. Findings were called to [place] in the emergency department at 1251 hours Code CR.
[2019-12-10 13:14] LABS: #Basophils 0.1 thou/uL (0.0-0.2); #Eosinphils 0.2 thou/uL (0.0-0.7); #Lymphocytes 2.2 thou/uL (1.20-3.40); #Monocytes 0.9 thou/uL (0.11-0.59); #Neutrophils 8.9 thou/uL (1.40-6.50); %Basophils 0.7 % (0.0-1.0); %Eosinophils 1.9 % (0.0-10.0); %Lymphocytes 17.9 % (21.0-51.0); %Monocytes 7.3 % (0.0-10.0); %Neutrophils 72.2 % (42.0-75.0); Hemoglobin 12.5 g/dL (14.0-18.0); Mean Corpuscular HGB CONC 32.9 g/dL (32.0-36.0); Mean Corpuscular Hemoglobin 27.7 pg (27.0-31.0); Mean Corpuscular Volume 84.3 fL (78.0-98.0); Mean Platelet Volume 7.1 fL (7.4-10.4); Platelet Count 276 thou/uL (130-400); RBC Distribution Width 13.5 % (11.5-14.5); Red Blood Cell (RBC) Count 4.52 mill/uL (4.70-6.10); White Blood Cell (WBC) Count 12.4 thou/uL (4.8-10.8)
[2019-12-10 13:30] LABS: PTT 26.6 sec (22.9-36.1)
[2019-12-10 13:32] LABS: Prothrombin Time 13.3 sec (12.0-14.7)
[2019-12-10] MEDS ORDERED: Iopamidol-370 76% 500 ML 1 ML ONE (13:34)
--- NOTE | 2019-12-10 13:34 | CT ---
EXAM: CT angiogram of the head including 3-D rendering: HISTORY: Left-sided numbness and tingling, headache, dizziness COMPARISON: None FINDINGS: There is adequate opacification of the intracranial arteries. Visualized vertebral and basilar arteries: Unremarkable. Right and left intracranial internal carotid arteries: Unremarkable. Right and left Anterior and posterior cerebral arteries: Unremarkable. Right and left middle cerebral arteries: Unremarkable. No evidence for an M1 segment occlusion. No evidence for intracranial aneurysm. All stenosis measurements use [place]et Criteria. IMPRESSION: No significant major branch occlusion or stenosis. No evidence for intracranial aneurysm. Exam: CT angiogram neck with 3-D rendering: HISTORY: Left-sided numbness and tingling, headache, dizziness Exam is limited technically because of large body habitus particularly in the region of the upper [address] and lower neck where the proximal CCAs and proximal vertebral arteries are very poorly seen. There is a a 1.2 x 1.8 cm diameter low-attenuation nodule in the right lobe of the thyroid. The dista l common carotid arteries and proximal internal carotid arteries have a very near midline position at the level of the oropharynx. No evidence for significant stenosis involving either the right or left common or internal carotid ar teries or vertebral arteries. IMPRESSION: No significant common or internal carotid artery or vertebral artery stenotic disease or occlusion. The carotid artery bifurcation and proximal ICA 's are very near the midline in location. 1.2 x 1.8 cm right lobe of thyroid nodule. Findings discussed with Dr. Springer in the emergency room at 1:27 PM CODE CR
[2019-12-10 14:12] LABS: Albumin 4.5 g/dL (3.4-4.8)
[2019-12-10 14:13] LABS: Chloride 103 mmol/L (98-107); Potassium 4.4 mmol/L (3.5-5.1); Sodium 133 mmol/L (136-145)
[2019-12-10 14:14] LABS: Calcium 9.8 mg/dL (7.8-10.44)
[2019-12-10 14:15] LABS: Globulin 3.1 g/dL (2.4-3.5); Protein, Total 7.6 g/dL (5.8-8.1)
[2019-12-10 14:16] LABS: Anion Gap 15 mmol/L (10-20); Carbon Dioxide 19 mmol/L (23-31)
[2019-12-10 14:17] LABS: Bilirubin, Total 0.5 mg/dL (0.2-1.2); Glucose 53 mg/dL (80-115)
[2019-12-10 14:18] LABS: Alkaline Phosphatase 82 U/L (40-110); Calc. Creatinine Clearance 0 mL/min (70-130); Estimated GFR-MDRD 71
[2019-12-10 14:19] LABS: BUN (Urea Nitrogen) 18 mg/dL (8.4-25.7)
[2019-12-10 14:20] LABS: AST (SGOT) 32 U/L (5-34)
[2019-12-10 14:21] LABS: ALT (SGPT) 40 U/L (8-55); CK (CPK) 573 U/L (30-200)
[2019-12-10] MEDS ORDERED: Aspirin Chewable 81 MG TAB ONE (14:56)
[2019-12-10] MEDS ORDERED: hydrALAZINE 20 MG/ML VIAL ONE (14:56)
[2019-12-10] MEDS ORDERED: Dextrose 50% Abboject 50 ML SYRINGE SLOW IVP PRN (15:47)
[2019-12-10] MEDS ORDERED: Labetalol HCl 100 MG/20 ML VIAL SLOW IVP PRN (15:47)
[2019-12-10] MEDS ORDERED: Dextrose 5% in Water 1,000 ML IV PRN (15:47)
[2019-12-10] MEDS ORDERED: HumaLOG 300 UNITS/3 ML VIAL SC PRN ×2 (15:47)
[2019-12-10 16:47] LABS: Troponin I Less than 0.010 ng/mL (< 0.028)
--- NOTE | 2019-12-10 18:05 | HP ---
PRIMARY CARE PHYSICIAN: Dr. Castellon. CHIEF COMPLAINT: Left arm numbness and coldness. HISTORY OF PRESENT ILLNESS: The patient is a 64-year-old male with a past medical history of elevated cholesterol, hypertension, anxiety, depression, bipolar. He presents to the ER today for left arm numbness and coldness feeling. He woke up this morning feeling normal and fine. This numbness started around 10 a.m. Also, states that he had some shortness of breath where he felt like he could not take a deep breath, headache and dizziness. Denies any change from this morning, although his hand no longer feels cold, just still numb. He denied attempting medications. He denied any sick contacts. He states that he took his normal diabetic medications this morning. Today in the ER they completed a CT [place] angio with contrast, brain CT, EKG and lab work. At one time, he was administered apresoline, which caused him to have chest pain and to become flushed. Symptoms did resolve after a couple of minutes, but will avoid apresoline during hospital stay. PAST MEDICAL HISTORY: Elevated cholesterol, hypertension, anxiety, depression, bipolar, diabetes type 2, sleep apnea with CPAP usage. PAST SURGICAL HISTORY: Left knee replacement, appendectomy. ALLERGIES: SULFA AND TAMIFLU. MEDICATIONS: Patient unable to recall medications. SOCIAL HISTORY: The patient lives at home with and continues to work. Drinks alcohol occasionally and denies any tobacco or drug usage. FAMILY HISTORY: Grandma had enlarged heart. REVIEW OF SYSTEMS: All other review of systems are negative unless noted in HPI. PHYSICAL EXAMINATION: VITAL SIGNS: Blood pressure 170/84, pulse 80, respiratory rate 17, temperature 98.4 orally, O2 saturation 97% on room air. GENERAL: The patient appears nontoxic. HEENT: Head atraumatic, normocephalic. Eyes, PERRLA. Extraocular muscles intact. No nystagmus. NECK: Normal range of motion. Trachea midline. RESPIRATORY: No respiratory distress. Clear to auscultation bilaterally. Normal chest rise. No rhonchi, no wheezes, no rales. CARDIOVASCULAR: Regular rate and rhythm. No murmurs, no gallops. No rubs. ABDOMEN: Bowel sounds normal. Slight tenderness to the left upper quadrant. No distention. No guarding. EXTREMITIES: Sensation impairment to left upper extremity. Radial pulses normal. Normal range of motion. Lower extremity, impaired sensation to the left lower extremity. Posterior tibial pulses normal bilaterally. Pedal pulses normal bilaterally. NEUROLOGIC: The patient oriented to person, place, and time. Speech normal. No focal motor deficits. Sensory deficits include sensory deficit to the left arm and left leg and left face. Cerebellar intact. No nystagmus. SKIN: Warm, dry, and intact. PSYCHIATRIC: Normal affect, normal behavior. LABORATORY DATA: EKG showed sinus rhythm, 80 beats per minute. Brain CT showed chronic type findings. No acute intracranial abnormalities are demonstrated. CT [place] angio with contrast showed no significant major branch occlusion or stenosis. No evidence for intracranial aneurysm. White blood cells 12.4, hemoglobin 12.5, hematocrit 38.1. PT 13.3, INR 1.0. Chemistry, sodium 133, potassium 4.4, glucose upon arrival 53, after eating glucose was 119, calcium 9.8, CK 573. Initial troponin 0.019, second troponin negative. IMPRESSION AND PLAN: Possible transient ischemic attack with left-sided sensory deficit. We will consult stroke team in Neurology. We will also have patient on statin and check fasting lipids in the morning. Start patient on full-dose aspirin. Will reconcile patient's medications shortly once we can talk with his . Blood pressure control with permissive hypertension allowed. Will use labetelol as prn antihypertensive due to patient's reaction with apresoline. IV fluids have been started on patient due to his elevated CK. So far, initial troponins are negative. We will monitor on telemetry overnight. We will continue to monitor patient's Accu-Cheks a.c. and at bedtime and cover sliding scale insulin as needed. We hope to avoid future events of hypoglycemia by monitoring patient's accucheks. VTE prophylaxis with SCDs and GI prophylaxis with Pepcid. The patient wishes to be a full code. His surrogate decision maker is Nathalia, his . The patient has been discussed with Dr. Guzmán. Job ID: [id number] [facility]
[2019-12-10] MEDS ORDERED: HYDROcodone/Acetaminophen 5/325 mg Tablet ONE (19:45)
[2019-12-10] MEDS ORDERED: HYDROcodone/Acetaminophen 5/325 mg Tablet PO SCH (19:45)
[2019-12-10 19:57] LABS: Troponin I 0.018 ng/mL (< 0.028)
[2019-12-10 21:32] VITALS: BMI 51.4
[2019-12-10] MEDS: Nitroglycerin 2% Ointment 1 INCH/1 GM Packet TOP SCH (21:33)
[2019-12-10] MEDS: Atorvastatin Calcium 40 MG TAB PO SCH (21:33)
[2019-12-10] MEDS: Sodium Chloride 0.9% 1,000 ML IV SCH (22:15)
[2019-12-11] MEDS ORDERED: clonazePAM 0.5 MG TAB PO SCH (00:30)
[2019-12-11] MEDS: Acetaminophen 500 MG TAB PO SCH ×2 (00:52→08:19)
[2019-12-11 05:46] LABS: Cardiac Risk 3.2 (Less than 4.5)
[2019-12-11] MEDS: Sodium Chloride 0.9% 1,000 ML IV SCH (07:01)
[2019-12-11] MEDS: Nitroglycerin 2% Ointment 1 INCH/1 GM Packet TOP SCH ×2 (07:01→16:28)
[2019-12-11] MEDS: Aspirin 325 mg Enteric Coated Tablet PO SCH (08:19)
--- NOTE | 2019-12-11 11:50 | MRI ---
MRI brain without and with gadolinium contrast HISTORY: Altered mental status. Left arm numbness. FINDINGS: There is no evidence of acute intracranial hemorrhage or infarct. Mild diffuse cortical atr ophy. There is no mass effect, shift of midline structures, or abnormal areas of contrast enhancement. Increased FLAIR and T2 signal present within the right mastoid air cells. IMPRESSION : Mild diffuse cortical atrophy. No acute intracranial abnormalities are demonstrated. Mucosal thickening right mastoid air cells. Cause is not evident.
[2019-12-11] MEDS: diphenhydrAMINE 50 MG/ML VIAL IVP PRN ×2 (13:14→21:17)
[2019-12-11] MEDS: Prochlorperazine 10 MG/2 ML VIAL IVP PRN ×2 (13:15→21:18)
--- NOTE | 2019-12-11 13:30 | PDOC.HOSPP ---
- Subjective Encounter Date: 12/11/19 Encounter Time: 13:29 Subjective: minimal sia-numbness - Objective Vital Signs & Weight: Vital Signs (12 hours) Temp Pulse Resp BP Pulse Ox 12/11/19 07:48 98.3 F 82 22 H 133/63 96 12/11/19 03:40 97.4 F L 70 20 118/57 L 98 Weight Weight 328 lb 5 oz I&O: 12/10/19 12/11/19 12/12/19 06:59 06:59 06:59 Intake Total 450 Balance 450 Result Diagrams: 12/10/19 12:52 12/10/19 12:52 Additional Labs: Accuchecks 12/10/19 12/10/19 15:08 13:04 POC Glucose 119 H 58 L* Hospitalist ROS - Medication Medications: Active Medications Generic Name Dose Route Start Last Admin Trade Name Freq PRN Reason Stop Dose Admin Aspirin 325 mg 12/11/19 09:00 12/11/19 08:19 Ecotrin PO 325 mg DAILY ELISABTEH Administration Atorvastatin Calcium 40 mg 12/10/19 21:00 12/10/19 21:33 Lipitor PO 40 mg HS ELISABETH Administration Diphenhydramine HCl 25 mg 12/11/19 11:43 12/11/19 13:14 Benadryl IVP 25 mg Q6H PRN Administration Itching Sodium Chloride 1,000 mls @ 75 mls/hr 12/10/19 17:00 12/11/19 07:01 Normal Saline 0.9% IV Not Given .[id number] ELISABETH Nitroglycerin 0.5 inch 12/10/19 22:00 12/11/19 07:01 Nitro-Bid 2% Ointment TOP 0.5 inch Q8HR ELISABETH Administration Prochlorperazine Edisylate 10 mg 12/11/19 11:44 12/11/19 13:15 Compazine IVP 10 mg Q6H PRN Administration Nausea - Exam General Appearance: awake alert Neck: no JVD Heart: RRR, no murmur Respiratory: CTAB Gastrointestinal: soft, non-tender, normal bowel sounds Extremities: no edema Neurological: cranial nerve grossly intact, no focal deficits Hosp A/P (1) TIA (transient ischemic attack) Code(s): G45.9 - TRANSIENT CEREBRAL ISCHEMIC ATTACK, UNSPECIFIED Status: Acute (2) Bipolar disorder Code(s): F31.9 - BIPOLAR DISORDER, UNSPECIFIED Status: Chronic Qualifiers: Active/Remission status: in remission of unspecified degree Qualified Code( s): F31.70 - Bipolar disorder, currently in remission, most recent episode unspecified (3) DM type 2 (diabetes mellitus, type 2) Status: Chronic Qualifiers: Diabetes mellitus bed bug exterminator insulin use: without bed bug exterminator use Diabetes mellitus complication status: with unspecified complications (4) HTN (hypertension) Code(s): I10 - ESSENTIAL (PRIMARY) HYPERTENSION Status: Chronic Qualifiers: Hypertension type: essential hypertension Qualified Code(s): I10 - Essential (primary) hypertension - Plan brain MRI unremarkable, neuro exam intact neuro consult pending cont ASA, statin, home meds
--- NOTE | 2019-12-11 14:16 | CON ---
NEUROLOGY CONSULTATION DATE OF CONSULTATION: 12/11/2019 REASON FOR CONSULTATION: Left upper extremity numbness and paresthesias, rule out stroke. HISTORY OF PRESENT ILLNESS: Mr. Berny Bautista is a 64-year-old male with medical history significant for hypercholesterolemia, hypertension, depression, bipolar disorder, and anxiety, presented to the emergency room yesterday with left upper extremity paresthesias and numbness. According to the patient, he woke up fine in the morning, but around 10 a.m., he had some short of breath and felt dizzy associated with headache. He also felt tingling and numbness in his right upper extremity, but denies any weakness. He came to the emergency room for further evaluation, where a head CT was done, which was negative for acute intracranial process. CT angiogram of the head and neck was also done, which did not reveal any hemodynamically significant stenosis. He was admitted to the stroke unit for further evaluation. The patient denies nausea or vomiting, but complains of frontal headache with blurred vision and photophobia since yesterday. He denies focal weakness, vertigo, loss of vision, loss of consciousness, any abnormal movements , difficulty swallowing, or problems with speech associated with this episode. REVIEW OF SYSTEMS: All 10 systems were reviewed and were negative except the pertinent positives and negatives mentioned in the HPI. PAST MEDICAL HISTORY: Hypertension; hypercholesterolemia; anxiety; depression; bipolar disorder; diabetes; sleep apnea, on CPAP. PAST SURGICAL HISTORY: Left knee replacement and appendectomy. ALLERGIES: SULFA AND TAMIFLU. MEDICATIONS: The patient does take medications for blood pressure and diabetes , but does not remember. SOCIAL HISTORY: The patient is , lives with his . Denies smoking or illegal drug use. Drinks alcohol occasionally. FAMILY HISTORY: Significant for coronary artery disease. Objective Vital Signs & Weight: Vital Signs (12 hours) Temp Pulse Resp BP Pulse Ox 12/11/19 07:48 98.3 F 82 22 H 133/63 96 12/11/19 03:40 97.4 F L 70 20 118/57 L 98 Weight Weight 328 lb 5 oz I&O: 12/10/19 12/11/19 12/12/19 06:59 06:59 06:59 Intake Total 450 Balance 450 Additional Labs: Accuchecks 12/10/19 12/10/19 15:08 13:04 POC Glucose 119 H 58 L* Active Medications Generic Name Dose Route Start Last Admin Trade Name Freq PRN Reason Stop Dose Admin Aspirin 325 mg 12/11/19 09:00 12/11/19 08:19 Ecotrin PO 325 mg DAILY ELISABETH Administration Atorvastatin Calcium 40 mg 12/10/19 21:00 12/10/19 21:33 Lipitor PO 40 mg HS ELISABETH Administration Diphenhydramine HCl 25 mg 12/11/19 11:43 12/11/19 13:14 Benadryl IVP 25 mg Q6H PRN Administration Itching Sodium Chloride 1,000 mls @ 75 mls/hr 12/10/19 17:00 12/11/19 07:01 Normal Saline 0.9% IV Not Given .[id number] ELISABETH Nitroglycerin 0.5 inch 12/10/19 22:00 12/11/19 07:01 Nitro-Bid 2% Ointment TOP 0.5 inch Q8HR ELISABETH Administration Prochlorperazine Edisylate 10 mg 12/11/19 11:44 12/11/19 13:15 Compazine IVP 10 mg Q6H PRN Administration Nausea - Exam General Appearance: awake alert Neck: no JVD Heart: RRR, no murmur Respiratory: CTAB Gastrointestinal: soft, non-tender, normal bowel sounds Extremities: no edema Neurological: Mental status; the patient is alert and oriented to person, place , and time. Speech is clear. Recent and remote memory intact. Fund of knowledge is appropriate. Cranial nerves 2 through 12 intact. Sensory; decreased sensation to light touch in the left upper extremity. Motor; muscle tone and bulk are normal. Strength 5/5 bilaterally. Cerebellar; finger-nose testing intact. Gait deferred due to the patient's safety reasons. Hosp A/P (1) TIA (transient ischemic attack) Code(s): G45.9 - TRANSIENT CEREBRAL ISCHEMIC ATTACK, UNSPECIFIED Status: Acute (2) Bipolar disorder Code(s): F31.9 - BIPOLAR DISORDER, UNSPECIFIED Status: Chronic Qualifiers: Active/Remission status: in remission of unspecified degree Qualified Code( s): F31.70 - Bipolar disorder, currently in remission, most recent episode unspecified (3) DM type 2 (diabetes mellitus, type 2) Status: Chronic Qualifiers: Diabetes mellitus office copy selector insulin use: without office copy selector use Diabetes mellitus complication status: with unspecified complications (4) HTN (hypertension) Code(s): I10 - ESSENTIAL (PRIMARY) HYPERTENSION Status: Chronic Qualifiers: Hypertension type: essential hypertension Qualified Code(s): I10 - Essential (primary) hypertension DATA REVIEWED: I reviewed the CT scan which was negative for acute intracranial process. CT angiogram of the head and neck was also negative for hemodynamically significant stenosis. MRI of the brain reviewed which was negative for acute intracranial pathology. Labs were also reviewed, and results were noted. ASSESSMENT AND PLAN: Mr. Berny Bautista is consulted for episodes of tingling and paresthesias of the left upper extremity. TIA versus complicated migraine with neurological features. MRI of the brain reviewed which was negative for acute intracranial process. CT angiogram of the head and neck was negative for hemodynamically significant stenosis. Neuro checks every 4 hours. Strict control of blood pressure and blood glucose. Check hemoglobin A1c, TSH, and fasting lipid panel. Recommend 2 D echo. Continue aspirin and high-intensity statin for secondary stroke prevention. Continue home medications. Continue medical management per primary team. Consider IV Benadryl and Compazine combination to abort the headache. PT/OT/speech evaluation. We will continue to follow. Thank you for the consult. Job ID: [id number] [facility]
[2019-12-11] MEDS ORDERED: Magnevist 469MG/ML 20 ML VIAL ONE (14:19)
[2019-12-11] MEDS: metFORMIN XR 500 MG TAB PO SCH (16:29)
[2019-12-11] MEDS ORDERED: INSULIN GLARGINE SC SCH (21:00)
[2019-12-11] MEDS ORDERED: PRE FILLED SC SCH (21:00)
[2019-12-11] MEDS ORDERED: LIRAGLUTIDE SQ SCH (21:00)
[2019-12-11] MEDS ORDERED: [UNRECOGNIZED DRUG - OTHER] SC SCH (21:00)
[2019-12-11] MEDS ORDERED: INSULIN GLARGINE HUM REC ANLOG SC SCH (21:00)
[2019-12-11] MEDS ORDERED: traZODone HCl 50 MG TAB PO SCH (21:00)
[2019-12-11] MEDS ORDERED: Non-Formulary Item 1 EACH (Trazodone Hcl [Trazodone Hcl] 100 MG) PO SCH (21:00)
[2019-12-11] MEDS: clonazePAM 0.5 MG TAB PO SCH (21:13)
[2019-12-11] MEDS: Atorvastatin Calcium 40 MG TAB PO SCH (21:13)
[2019-12-12 07:22] VITALS: BP 176/79; TEMP 97.8
[2019-12-12] MEDS: clonazePAM 0.5 MG TAB PO SCH (08:22)
[2019-12-12] MEDS: Aspirin 325 mg Enteric Coated Tablet PO SCH (08:22)
[2019-12-12] MEDS: metFORMIN XR 500 MG TAB PO SCH (08:23)
[2019-12-12] MEDS ORDERED: ARIPIPRAZOLE 5 MG PO SCH (09:00)
[2019-12-12] MEDS ORDERED: Non-Formulary Item 1 EACH (Omeprazole [Omeprazole] 1 TAB) PO SCH (09:00)
[2019-12-12] MEDS ORDERED: Rosuvastatin 5 MG TAB PO SCH (09:00)
[2019-12-12] MEDS ORDERED: Non-Formulary Item 1 EACH (Lisinopril [Lisinopril] 20 MG) PO SCH (09:00)
[2019-12-12] MEDS ORDERED: Glimepiride 4 MG TAB PO SCH (09:00)
[2019-12-12] MEDS ORDERED: PIOGLITAZONE HCL 30 MG PO SCH (09:00)
[2019-12-12] MEDS ORDERED: Pioglitazone HCl 15 MG TAB PO SCH (09:00)
[2019-12-12] MEDS ORDERED: Aripiprazole 10 MG TAB PO SCH (09:00)
[2019-12-12] MEDS ORDERED: Insulin Glargine 62 UNITS in Pre-Filled Syringe 1 EACH SC SCH (09:00)
[2019-12-12] MEDS ORDERED: Bupropion 150 MG XL TAB PO SCH (09:00)
[2019-12-12] MEDS ORDERED: Lisinopril 20 MG TAB PO SCH (09:00)
[2019-12-12] MEDS ORDERED: [UNRECOGNIZED DRUG - OTHER] SQ SCH (09:00)
[2019-12-12] MEDS ORDERED: BUPROPION HCL 300 MG PO SCH (09:00)
[2019-12-12] MEDS ORDERED: INSULIN GLARGINE HUM REC ANLOG SQ SCH (09:00)
[2019-12-12] MEDS ORDERED: lamoTRIgine 100 MG TAB PO SCH ×2 (09:00)
[2019-12-12] MEDS ORDERED: Escitalopram Oxalate 20 mg Tablet PO SCH (09:00)
--- NOTE | 2019-12-12 15:07 | DIS ---
DATE OF ADMISSION: 12/10/2019 DATE OF DISCHARGE: 12/12/2019 PRIMARY CARE PROVIDER: Austin Swann MD. DIAGNOSES: Transient ischemic attack, hypertension, type 2 diabetes, bipolar disorder. The patient was discharged. MEDICATIONS: 1. Trazodone 100 mg at bedtime. 2. Metformin 1000 mg twice a day. 3. Lamictal 1.5 tablets a day. 4. Clonazepam 0.5 mg twice a day. 5. Bupropion XL 300 mg a day. 6. Actos 30 mg a day. 7. Omeprazole 20 mg a day. 8. Lisinopril 20 mg a day. 9. Victoza 8 units subcu at bedtime. 10. Insulin glargine 62 units in the morning. 11. Amaryl 4 mg a day. 12. Escitalopram 20 mg a day. 13. Atorvastatin 40 mg a day. 14. Aspirin 325 mg a day. 15. Aripiprazole 5 mg a day. ALLERGIES: TAMIFLU AND SULFONAMIDE. HOSPITAL COURSE: The patient was admitted to the emergency room with sia-numbness on his left side of his body, questionable weakness. Brain CT showed chronic changes, no acute intracranial abnormalities. CT [place] showed no significant major branch occlusion or stenosis. CBC was unremarkable. Chemistry showed a sodium of 133, potassium 4.4. Troponin was 0.19, second was negative. He was placed in the hospital on stroke protocol. He was seen in consultation by Dr. Rush of Neurology. Brain MRI showed no acute finding. His neurological exam remains intact except for some subjective change in sensation. Neurology consultation recommended increased dose of statin. Continue aspirin. This was discussed with the patient today. He was agreeable. He is being discharged for followup with Dr. Castellon in 3 to 7 days. Job ID: [id number]
== END 2019-12-12 09:50 | disposition home or self-care (01) ==
LOC: ERS 12:34 → ERHOLD 16:46 → 2SE 21:29
PROVIDERS: ADMIT Internal Medicine; ATTEND Internal Medicine
DX: G45.9 Transient cerebral ischemic attack, unspecified (principal); I10 Essential (primary) hypertension; E11.9 Type 2 diabetes mellitus without complications; E78.00 Pure hypercholesterolemia, unspecified; F41.9 Anxiety disorder, unspecified; F31.9 Bipolar disorder, unspecified; G47.30 Sleep apnea, unspecified; Z79.4 Long term (current) use of insulin; Z79.82 Long term (current) use of aspirin; Z79.899 Other long term (current) drug therapy; Z88.2 Allergy status to sulfonamides
CPT/HCPCS: 36415; 36416; 70450; 70496; 70498; 70553; 80053; 80061; 82550; 84484; 85025; 85610; 85730; 86850; 86900; 86901; 90471; 90732; 93005; 94760; 96361; 96374; 96375; 96376; A9579; G0009; G0378; J0360; J0780; J1200; J1815; Q9967

== ENCOUNTER 2020-01-11 12:52 | Outpatient (CLI) | payer BC | END 2020-01-11 12:53 | disposition home or self-care (01) | LOC: DTY/OP 12:52 | PROVIDERS: ATTEND Surgery | DX: E66.01 Morbid (severe) obesity due to excess calories (principal) | CPT/HCPCS: 97802 ==

== ENCOUNTER 2020-03-05 16:30 | Inpatient (IN) | payer BC ==
[2020-03-10] MEDS ORDERED: Heparin 5,000 UNITS/ML VIAL ONE (11:53)
[2020-03-10] MEDS ORDERED: Bupivacaine/Epinephrine 0.25% 30 ML VIAL ONE (13:54)
[2020-03-10] MEDS ORDERED: Ondansetron PF 4 MG/2 ML Vial ONE (13:59)
[2020-03-10] MEDS ORDERED: Rocuronium Bromide 10 MG/ML (10ML VIAL) ONE (13:59)
[2020-03-10] MEDS ORDERED: Lidocaine 1% PF 5 ML VIAL ONE (13:59)
[2020-03-10] MEDS ORDERED: Succinylcholine Chloride 20 MG/ML 10 ml SYRINGE FS ONE (13:59)
[2020-03-10] MEDS ORDERED: Glycopyrrolate 0.2 MG/ML 5 ML SYRINGE ONE (13:59)
[2020-03-10] MEDS ORDERED: EPHEDRINE 25 MG/5 ML SYRINGE ONE (13:59)
[2020-03-10] MEDS ORDERED: PROPOFOL 200 MG/20 ML VIAL ONE (13:59)
[2020-03-10] MEDS ORDERED: Fentanyl 100 MCG/2 ML VIAL ONE ×3 (14:08→16:34)
[2020-03-10] MEDS ORDERED: Dextrose 5% in Water 1,000 ML IV PRN (15:34)
[2020-03-10] MEDS ORDERED: hydrALAZINE 20 MG/ML VIAL SLOW IVP PRN (15:34)
[2020-03-10] MEDS ORDERED: Ondansetron PF 4 MG/2 ML Vial IVP PRN ×2 (15:34→16:16)
[2020-03-10] MEDS ORDERED: Hydrocodone-Acetamin 15 ML UDCUP PO PRN (15:34)
[2020-03-10] MEDS ORDERED: Dextrose 50% Abboject 50 ML SYRINGE SLOW IVP PRN (15:34)
[2020-03-10] MEDS ORDERED: diphenhydrAMINE 50 MG/ML VIAL IVP PRN ×2 (15:34→16:16)
[2020-03-10] MEDS ORDERED: Promethazine HCl 25 MG/ML VIAL IM PRN ×3 (15:34→16:16)
[2020-03-10] MEDS ORDERED: Promethazine HCl 25 MG/ML VIAL ONE (15:41)
[2020-03-10] MEDS ORDERED: Naloxone HCl 0.4 mg/ml Vial IV PRN (16:16)
[2020-03-10] MEDS ORDERED: Ondansetron HCl/PF 4 MG/2 ML Vial IVP PRN (16:16)
[2020-03-10] MEDS ORDERED: fentaNYL Citrate/PF 2,000 MCG in Sodium Chloride 0.9% 60 ML IV PRN (16:16)
[2020-03-10] MEDS ORDERED: diphenhydrAMINE 25 MG CAP PO PRN (16:16)
[2020-03-10] MEDS ORDERED: Zolpidem Tartrate 5 MG TAB PO PRN (16:16)
[2020-03-10] MEDS ORDERED: Promethazine HCl 25 MG/ML VIAL SLOW IVP PRN (16:16)
[2020-03-10] MEDS ORDERED: diphenhydrAMINE 50 MG/ML VIAL IM PRN (16:16)
[2020-03-10] MEDS ORDERED: Communication Order-Pharmacy FS SCH (16:30)
--- NOTE | 2020-03-10 17:29 | OP ---
DATE OF PROCEDURE: 03/10/2020 PREOPERATIVE DIAGNOSES: 1. Morbid obesity with a body mass index of 46. 2. Diabetes mellitus. 3. Hypertension. 4. Sleep apnea. POSTOPERATIVE DIAGNOSES: 1. Morbid obesity with a body mass index of 46. 2. Diabetes mellitus. 3. Hypertension. 4. Sleep apnea. PROCEDURES PERFORMED: 1. Laparoscopic sleeve gastrectomy with Ethicon staple line reinforcements and 38-Russian bougie. 2. Esophagogastroduodenoscopy. ANESTHESIA: General. ESTIMATED BLOOD LOSS: Minimal. COMPLICATIONS: None. FINDINGS: Normal postoperative EGD. SPECIMENS: Stomach. DESCRIPTION OF PROCEDURE: The patient was taken to the operating room and laid supine on the operating room table. After general anesthetic was obtained, his arms and legs were double strapped to bariatric table. OG tube was used to decompress the stomach and then removed. The abdomen was shaved, prepped, and draped in a sterile fashion. Left subcostal 5-mm Optiview trocar placed in the usual fashion and high-flow pneumoperitoneum was obtained. Left and right abdominal 12-mm ports as well as a right subcostal 5-mm port were placed under direct visualization. A 5-mm incision was made at the xiphoid and then [place] was used to raise the liver off the GE junction. Short gastrics were taken down from midbody of the stomach to left divya of diaphragm. Left divya, posterior fundus, and angle of His were completely dissected. Short gastrics were taken down to a distance of 6 cm proximal to the pylorus. A 38-bougie was brought in and its tip left in the antrum of the stomach. Multiple loads of an [place] stapling device with Ethicon reinforcements were used to form the sleeve, the 1st was a green load. The rest are gold loads all the way to the angle of His. The stomach was removed from left abdominal incision. This fascial defect was closed using GraNee needle and 0 Vicryl tie. All port sites were infiltrated using local anesthetic. A few bleeders on the staple line were clipped using laparoscopic clip. EGD scope was passed from the esophagus and stomach to the level of duodenum without obstruction. There was no stricture at the incisura. No involvement of the GE junction with the staple line. EGD was used to decompress the stomach and it was pulled and removed. All port sites were infiltrated using local anesthetic. All ports were removed under camera visualization. Pneumoperitoneum was let down. A 4-0 Monocryl Dermabond were used to close all skin incisions. The patient was sent to Recovery in stable condition. All instrument counts, needle counts, and lap counts were correct. Job ID: [id number]
[2020-03-10] MEDS: Sodium Chloride 0.9% 1,000 ML IV SCH (20:39)
[2020-03-10] MEDS ORDERED: clonazePAM 0.5 MG TAB PO SCH (21:00)
[2020-03-10] MEDS ORDERED: Enoxaparin Sodium 40 MG/0.4 ML SYRINGE SC SCH (21:00)
[2020-03-10] MEDS ORDERED: Amlodipine 5 MG TAB PO SCH (21:00)
[2020-03-10 21:54] VITALS: BMI 46.5
[2020-03-11] MEDS ORDERED: HumaLOG 300 UNITS/3 ML VIAL SC PRN (00:45)
[2020-03-11] MEDS: Sodium Chloride 0.9% 1,000 ML IV SCH ×2 (02:19→05:16)
[2020-03-11 05:34] LABS: #Lymphocytes 1.1 thou/uL (1.20-3.40); #Monocytes 0.5 thou/uL (0.11-0.59); #Neutrophils 13.5 thou/uL (1.40-6.50); %Basophils 0.1 % (0.0-1.0); %Eosinophils 0.1 % (0.0-10.0); %Lymphocytes 7.5 % (21.0-51.0); %Monocytes 3.5 % (0.0-10.0); %Neutrophils 88.8 % (42.0-75.0); Mean Corpuscular HGB CONC 32.2 g/dL (32.0-36.0); Mean Corpuscular Hemoglobin 26.5 pg (27.0-31.0); Mean Corpuscular Volume 82.3 fL (78.0-98.0); Mean Platelet Volume 7.6 fL (7.4-10.4); Platelet Count 285 thou/uL (130-400); RBC Distribution Width 12.9 % (11.5-14.5); Red Blood Cell (RBC) Count 4.52 mill/uL (4.70-6.10); White Blood Cell (WBC) Count 15.2 thou/uL (4.8-10.8)
[2020-03-11 05:53] LABS: Anion Gap 16 mmol/L (10-20); BUN (Urea Nitrogen) 18 mg/dL (8.4-25.7); Calc. Creatinine Clearance 122 mL/min (70-130); Calcium 8.8 mg/dL (7.8-10.44); Carbon Dioxide 17 mmol/L (23-31); Chloride 102 mmol/L (98-107); Estimated GFR-MDRD 62; Glucose 255 mg/dL (80-115); Sodium 130 mmol/L (136-145)
[2020-03-11] MEDS: HumaLOG 300 UNITS/3 ML VIAL SC PRN ×2 (06:14→14:48)
[2020-03-11] MEDS ORDERED: Pantoprazole 40 MG VIAL IVP SCH (09:00)
[2020-03-11] MEDS ORDERED: Lisinopril 20 MG TAB PO SCH (09:00)
[2020-03-11] MEDS ORDERED: Aripiprazole 10 MG TAB PO SCH (09:00)
[2020-03-11] MEDS ORDERED: Hydrocodone-Acetamin 15 ML UDCUP PO PRN (10:11)
[2020-03-11 16:07] VITALS: BP 135/76; TEMP 98.7
[2020-03-11] MEDS ORDERED: FLU VACC QS2020-21(6MOS UP)/PF 60 MCG/0.5 ML SYRINGE IM ONE (21:00)
== END 2020-03-11 17:13 | disposition home or self-care (01) | DRG 621 ==
LOC: SURG A 03-10 10:50 → EDSTATUS 03-10 12:30 → SURG A 03-10 19:34
PROVIDERS: ADMIT Surgery; ATTEND Surgery
PROC: 0DB64Z3 Excision of Stomach, Percutaneous Endoscopic Approach, Vertical (ICD-10-PCS; principal; 2020-03-10)
PROC: 0DJ08ZZ Inspection of Upper Intestinal Tract, Via Natural or Artificial Opening Endoscopic (ICD-10-PCS; 2020-03-10)
DX: E66.01 Morbid (severe) obesity due to excess calories (principal); Z68.42 Body mass index [BMI] 45.0-49.9, adult; E11.65 Type 2 diabetes mellitus with hyperglycemia; G47.33 Obstructive sleep apnea (adult) (pediatric); E78.5 Hyperlipidemia, unspecified; I10 Essential (primary) hypertension; F31.9 Bipolar disorder, unspecified; F41.9 Anxiety disorder, unspecified; F42.9 Obsessive-compulsive disorder, unspecified; K21.9 Gastro-esophageal reflux disease without esophagitis; Z96.652 Presence of left artificial knee joint; Z79.899 Other long term (current) drug therapy; Z79.82 Long term (current) use of aspirin; Z90.49 Acquired absence of other specified parts of digestive tract; Z88.2 Allergy status to sulfonamides; Z79.84 Long term (current) use of oral hypoglycemic drugs
CPT/HCPCS: 36415; 36416; 80048; 85025; 88307; 88312; C9113; J0690; J1644; J1650; J2405; J2550; J2704; J3010

== ENCOUNTER 2020-03-06 08:07 | Outpatient (CLI) | payer BC, OTHER ==
--- NOTE | 2020-03-06 12:36 | RAD ---
RADIOGRAPH CHEST 2 VIEWS: DATE: 03/06/2020 HISTORY: 64-year-old male for preoperative clearance FINDINGS: There is no airspace density, pulmonary edema, pleural effusion, pneumothorax, or cardiomegaly. IMPRESSION: No acute cardiopulmonary findings.
[2020-03-06 16:32] LABS: #Basophils 0.1 thou/uL (0.0-0.2); #Eosinphils 0.4 thou/uL (0.0-0.7); #Lymphocytes 2.5 thou/uL (1.20-3.40); #Monocytes 0.7 thou/uL (0.11-0.59); #Neutrophils 9.4 thou/uL (1.40-6.50); %Basophils 0.4 % (0.0-1.0); %Lymphocytes 19.1 % (21.0-51.0); %Monocytes 5.4 % (0.0-10.0); %Neutrophils 72.1 % (42.0-75.0); Hemoglobin 12.7 g/dL (14.0-18.0); Mean Corpuscular HGB CONC 32.3 g/dL (32.0-36.0); Mean Corpuscular Volume 83.4 fL (78.0-98.0); Mean Platelet Volume 7.9 fL (7.4-10.4); Platelet Count 290 thou/uL (130-400); RBC Distribution Width 12.8 % (11.5-14.5); Red Blood Cell (RBC) Count 4.71 mill/uL (4.70-6.10)
[2020-03-06 16:44] LABS: Hemoglobin A1c 9.3 % (4.0-6.0)
[2020-03-06 17:30] LABS: ALT (SGPT) 34 U/L (8-55); AST (SGOT) 18 U/L (5-34); Albumin 4.3 g/dL (3.4-4.8); Alkaline Phosphatase 90 U/L (40-110); Anion Gap 16 mmol/L (10-20); BUN (Urea Nitrogen) 16 mg/dL (8.4-25.7); Bilirubin, Total 0.5 mg/dL (0.2-1.2); Calc. Creatinine Clearance 0 mL/min (70-130); Calcium 9.2 mg/dL (7.8-10.44); Carbon Dioxide 21 mmol/L (23-31); Chloride 99 mmol/L (98-107); Estimated GFR-MDRD 56; Globulin 2.4 g/dL (2.4-3.5); Glucose 365 mg/dL (80-115); Protein, Total 6.7 g/dL (5.8-8.1); Sodium 131 mmol/L (136-145)
[2020-03-07 12:32] LABS: SARS-CoV-2 MS2 Positive; SARS-CoV-2 N Gene Negative; SARS-CoV-2 S Gene Negative; SARS-CoV-2 by NAA Not Detected (NotDetected); SARS-CoV-2 orf1ab Negative
--- NOTE | 2020-03-08 16:53 | EKG ---
Test Reason : EKG Blood Pressure : / mmHG Vent. Rate : 083 BPM Atrial Rate : 083 BPM P-R Int : 170 ms QRS Dur : 100 ms QT Int : 384 ms P-R-T Axes : 000 -49 041 degrees QTc Int : 451 ms Normal sinus rhythm Left axis deviation Low voltage QRS Cannot rule out Anterior infarct (cited on or before 10-DEC-2019) Abnormal ECG When compared with ECG of 10-DEC-2019 13:28, No significant change was found Confirmed by DR. David JAUREGUI ([id number]) on 03/08/2020 4:52:38 PM Referred By: DR UMANA Confirmed By:DR. David JAUREGUI
== END 2020-03-06 08:08 | disposition home or self-care (01) ==
LOC: LABBT 08:07
PROVIDERS: ATTEND Surgery
DX: Z01.818 Encounter for other preprocedural examination (principal); Z20.828 Contact with and (suspected) exposure to other viral communicable diseases
CPT/HCPCS: 71046; 80053; 83036; 85025; 87635; 93005; 93010; U0003

== ENCOUNTER 2021-12-16 14:24 | Outpatient (CLI) | payer MEDICARE, OTHER | END 2021-12-16 14:25 | disposition home or self-care (01) | LOC: SCSRAD 14:24 | PROVIDERS: ATTEND Family Medicine | DX: R05.9 Cough, unspecified (principal) | CPT/HCPCS: 71046 ==

== ENCOUNTER 2022-07-01 11:27 | Outpatient (CLI) | payer MEDICARE, OTHER ==
[2022-07-01 14:51] LABS: Creatinine, Urine 218.91 mg/dL (63-166); Microalbumin Urine 6.4 mg/dL (0.5-50.0); Microalbumin/Creat Ratio 29.2 mg/g (Less than 30)
[2022-07-01 15:04] LABS: #Basophils 0.1 thou/uL (0.0-0.2); #Eosinphils 0.2 thou/uL (0.0-0.7); #Monocytes 0.7 thou/uL (0.11-0.59); %Basophils 0.5 % (0.0-1.0); %Eosinophils 1.9 % (0.0-10.0); %Lymphocytes 24.7 % (21.0-51.0); %Monocytes 6.2 % (0.0-10.0); %Neutrophils 66.7 % (42.0-75.0); Hemoglobin 14.3 g/dL (14.0-18.0); Mean Corpuscular HGB CONC 33.1 g/dL (32.0-36.0); Mean Corpuscular Hemoglobin 28.6 pg (27.0-31.0); Mean Corpuscular Volume 86.4 fl (78.0-98.0); Mean Platelet Volume 8.4 fL (7.4-10.4); Platelet Count 327 10x3/uL (130-400); RBC Distribution Width 11.1 % (11.5-14.5); Red Blood Cell (RBC) Count 4.98 mill/uL (4.70-6.10)
[2022-07-01 15:05] LABS: Hemoglobin A1c 7.9 % (4.0-6.0)
[2022-07-01 15:21] LABS: ALT (SGPT) 11 U/L (8-55); AST (SGOT) 12 U/L (5-34); Albumin 4.8 g/dL (3.4-4.8); Alkaline Phosphatase 78 U/L (40-110); Anion Gap 18 mmol/L (10-20); BUN (Urea Nitrogen) 18 mg/dL (8.4-25.7); Bilirubin, Total 1.3 mg/dL (0.2-1.2); Calc. Creatinine Clearance 0 mL/min (70-130); Carbon Dioxide 22 mmol/L (23-31); Chloride 99 mmol/L (98-107); Estimated GFR 70; Globulin 2.4 g/dL (2.4-3.5); Glucose 171 mg/dL (80-115); Iron 90 ug/dL (65-175); Iron Binding Capacity, Total 345 mcg/dL (261-462); Potassium 4.7 mmol/L (3.5-5.1); Protein, Total 7.2 g/dL (5.8-8.1); Sodium 134 mmol/L (136-145)
[2022-07-01 16:10] LABS: Ferritin 252.15 ng/mL (22-322); Thyroid Stimulating Hormone 1.6437 uIU/mL (0.35-4.94)
[2022-07-01 16:15] LABS: Vitamin B12 528 pg/mL (211-911)
[2022-07-01 16:37] LABS: HIV (1/2) Antibody/Antigen Non-Reactive (NonReactive); HIV 1/2 INDEX 0.15 S/CO (<1.00); Vitamin D, 25 Hydroxy 40.7 ng/ml (> 30.0)
== END 2022-07-01 11:28 | disposition home or self-care (01) ==
LOC: SCSRAD 11:27
PROVIDERS: ATTEND Family Medicine
DX: R63.4 Abnormal weight loss (principal); E11.40 Type 2 diabetes mellitus with diabetic neuropathy, unspecified; Z98.84 Bariatric surgery status
CPT/HCPCS: 36415; 71046; 80053; 82043; 82306; 82607; 82728; 82746; 83036; 83540; 83550; 84425; 84443; 85025; 87389

== ENCOUNTER 2022-07-27 07:31 | Outpatient (CLI) | payer MEDICARE, OTHER | END 2022-07-27 07:32 | disposition home or self-care (01) | LOC: BICCT 07:31 | PROVIDERS: ATTEND Family Medicine | DX: R51.9 Headache, unspecified (principal); H53.9 Unspecified visual disturbance | CPT/HCPCS: 70450 ==

== ENCOUNTER 2023-02-23 12:48 | Emergency (ER) | payer MEDICARE, OTHER ==
[2023-02-23 14:12] LABS: #Eosinphils 0.2 thou/uL (0.0-0.7); #Monocytes 0.8 thou/uL (0.11-0.59); %Basophils 0.4 % (0.0-1.0); %Eosinophils 1.9 % (0.0-10.0); %Lymphocytes 22.4 % (21.0-51.0); %Monocytes 8.9 % (0.0-10.0); %Neutrophils 66.1 % (42.0-75.0); Hematocrit 38.6 % (42.0-52.0); Hemoglobin 12.9 g/dL (14.0-18.0); Mean Corpuscular HGB CONC 33.4 g/dL (32.0-36.0); Mean Corpuscular Hemoglobin 28.5 pg (27.0-31.0); Mean Corpuscular Volume 85.4 fl (78.0-98.0); Platelet Count 225 10x3/uL (130-400); RBC Distribution Width 12.7 % (11.5-14.5); Red Blood Cell (RBC) Count 4.52 mill/uL (4.70-6.10)
[2023-02-23 14:34] LABS: ALT (SGPT) 29 U/L (8-55); AST (SGOT) 30 U/L (5-34); Albumin 4.5 g/dL (3.4-4.8); Alkaline Phosphatase 62 U/L (40-110); Anion Gap 17 mmol/L (10-20); BUN (Urea Nitrogen) 18 mg/dL (8.4-25.7); Bilirubin, Total 1.4 mg/dL (0.2-1.2); Calc. Creatinine Clearance 0 mL/min (70-130); Carbon Dioxide 22 mmol/L (23-31); Chloride 101 mmol/L (98-107); Estimated GFR 73; Globulin 2.5 g/dL (2.4-3.5); Glucose 89 mg/dL (80-115); Potassium 4.5 mmol/L (3.5-5.1); Sodium 135 mmol/L (136-145)
[2023-02-23 14:38] LABS: Troponin I 0.012 ng/mL (< 0.028)
[2023-02-23 15:33] LABS: Bilirubin Negative (Negative); Blood, Urine Negative (Negative); CAUTI Indications for Culture Pelvic or flank pain; Clarity Clear (Clear); Glucose, Urine (Dipstick) Normal (Negative); Ketone, Urine 10 mg/dL (Negative); Leukocyte Negative Leu/uL (Negative); Nitrite Negative (Negative); Protein, Urine (Dipstick) Negative (Neg-Trace); RBC/HPF 0-3 HPF (0-3); Specific Gravity, Urine 1.007 (1.002-1.036); Squamous Epithelial None Seen HPF (0-3); Urobilinogen Normal mg/dL (Less than 2); WBC/HPF 0-3 HPF (0-3)
[2023-02-23 15:35] LABS: Bacteria/HPF 1+ HPF (None Seen)
[2023-02-23 15:36] LABS: Urine Culture Reflex No No
== END 2023-02-23 17:08 | disposition home or self-care (01) ==
LOC: ERS 12:48
DX: R20.2 Paresthesia of skin (principal); R51.9 Headache, unspecified; R29.700 NIHSS score 0; E11.9 Type 2 diabetes mellitus without complications; I10 Essential (primary) hypertension; E66.9 Obesity, unspecified; Z86.73 Personal history of transient ischemic attack (TIA), and cerebral infarction without residual deficits
CPT/HCPCS: 36415; 70450; 80053; 81001; 83880; 84484; 85025; 93005

== ENCOUNTER 2023-03-03 14:45 | Outpatient (CLI) | payer MEDICARE, OTHER | END 2023-03-03 14:46 | disposition home or self-care (01) | LOC: BICULT 14:45 | PROVIDERS: ATTEND Internal Medicine Cardiovascular Disease | DX: G45.9 Transient cerebral ischemic attack, unspecified (principal); E04.1 Nontoxic single thyroid nodule | CPT/HCPCS: 76536 ==

== ENCOUNTER 2024-04-23 09:40 | Outpatient (CLI) | payer MEDICARE | END 2024-04-23 09:41 | disposition home or self-care (01) | LOC: SCSRAD 09:40 | PROVIDERS: ATTEND Neurological Surgery | DX: M47.22 Other spondylosis with radiculopathy, cervical region (principal) | CPT/HCPCS: 36415; 72050; 80053; 85025 ==

== ENCOUNTER 2024-05-31 12:18 | Outpatient (CLI) | payer MEDICARE ==
[2024-05-31 13:43] LABS: #Basophils 0.04 10x3/uL (0.0-0.2); %Basophils 0.4 % (0.0-1.0); %Eosinophils 1.2 % (0.0-10.0); %Lymphocytes 21.7 % (21.0-51.0); %Monocytes 6.6 % (0.0-10.0); %Neutrophils 69.7 % (42.0-75.0); Hematocrit 40.9 % (42.0-52.0); Hemoglobin 13.1 g/dL (14.0-18.0); Mean Corpuscular Hemoglobin 28.5 pg (27.0-31.0); Mean Corpuscular Volume 89.1 fL (78.0-98.0); Mean Platelet Volume 10.3 fL (7.4-10.4); Platelet Count 221 10x3/uL (130-400); RBC Distribution Width 13.2 % (11.5-14.5); Red Blood Cell (RBC) Count 4.59 mill/uL (4.70-6.10)
[2024-05-31 14:08] LABS: ALT (SGPT) 20 U/L (8-55); AST (SGOT) 17 U/L (5-34); Alkaline Phosphatase 64 U/L (40-110); Anion Gap 12 mmol/L (10-20); BUN (Urea Nitrogen) 13 mg/dL (8.4-25.7); Bilirubin, Direct 0.3 mg/dL (0.1-0.3); Bilirubin, Total 0.8 mg/dL (0.2-1.2); Calc. Creatinine Clearance 0 mL/min (70-130); Calcium 9.1 mg/dL (7.8-10.44); Carbon Dioxide 27 mmol/L (23-31); Chloride 105 mmol/L (98-107); Estimated GFR 98; Globulin 2.9 g/dL (2.4-3.5); Glucose 181 mg/dL (80-115); Potassium 3.8 mmol/L (3.5-5.1); Protein, Total 6.9 g/dL (5.8-8.1); Sodium 140 mmol/L (136-145)
== END 2024-05-31 12:19 | disposition home or self-care (01) ==
LOC: LABBT 12:18
PROVIDERS: ATTEND Internal Medicine Cardiovascular Disease
DX: Z01.812 Encounter for preprocedural laboratory examination (principal); R07.9 Chest pain, unspecified
CPT/HCPCS: 80053; 80076; 85025